=== PATIENT | male | born 1980 | race Caucasian/White ===

== ENCOUNTER 2017-10-11 14:43 | Inpatient (IN) | payer OTHER ==
[~2017-10-11] VITALS: Ht 162.6 cm; Wt 78.1 kg
[2017-10-11] MEDS ORDERED: MORPHINE SULFATE 2 MG/ML VIAL. IV ONE (16:00)
[2017-10-11] MEDS ORDERED: ONDANSETRON PF 4 MG/2 ML VIAL. IV ONE (16:00)
--- NOTE | 2017-10-11 16:01 | PHYS DOC ---
Past Medical History Past Medical History: No Pertinent History Past Surgical History: Appendectomy Alcohol Use: None Drug Use: None Adult General Chief Complaint Chief Complaint: RIB PAIN HPI HPI Patient is a 36 year old male presents the ED complaining of right rib injury 3 weeks ago. Patient states he was stripping floors and lifting objects when he felt a pull on the right side of his ribs. Describes the pain as sharp. Rates the pain as 6 out of 10. About a week later he started to go back to work and felt another pull. States over the last week he has noticed some swelling and tenderness to his right anterior rib cage. States he had a chest x-ray about a week ago that showed nothing. Patient is currently incarcerated at this time. Denies chest pain, shortness of breath, dizziness, weakness, headache, fever, vision changes, nausea/vomiting or abdominal pain. Review of Systems Review of Systems Constitutional: Denies fever or chills [] Eyes: Denies change in visual acuity, redness, or eye pain [] HENT: Denies nasal congestion or sore throat [] Respiratory: Denies cough or shortness of breath [] Cardiovascular: No additional information not addressed in HPI [] GI: Denies abdominal pain, nausea, vomiting, bloody stools or diarrhea [] : Denies dysuria or hematuria [] Musculoskeletal: Complains of rib pain. Denies back pain or joint pain [] Integument: Denies rash or skin lesions [] Neurologic: Denies headache, focal weakness or sensory changes [] All other systems were reviewed and found to be within normal limits, except as documented in this note. Current Medications Current Medications Current Medications Medications (Trade) Dose Ordered Sig/Migel Start Time Stop Time Status Last Admin Dose Admin Acetaminophen (Tylenol) 650 mg PRN Q4HRS PRN 10/11/17 17:15 10/12/17 17:14 Clindamycin Phosphate 50 ml @ 100 mls/hr 1X ONCE 10/11/17 17:15 10/11/17 17:44 DC Fentanyl Citrate (Fentanyl 2ml Vial) 50 mcg PRN Q1HR PRN 10/11/17 17:15 10/12/17 17:14 10/11/17 19:12 50 MCG Info (CONTRAST GIVEN -- Rx MONITORING) 1 each PRN DAILY PRN 10/11/17 16:15 10/13/17 16:14 Iohexol (Omnipaque 300 Mg/ml) 75 ml 1X ONCE 10/11/17 16:15 10/11/17 16:16 DC 10/11/17 16:27 75 ML Morphine Sulfate (Morphine Sulfate) 2 mg 1X ONCE 10/11/17 16:00 10/11/17 16:06 DC 10/11/17 16:34 2 MG Ondansetron HCl (Zofran) 4 mg PRN Q8HRS PRN 10/11/17 17:15 10/12/17 17:14 Vancomycin HCl (Vanco Per Pharmacy) 1 each PRN DAILY PRN 10/11/17 17:30 UNV Vancomycin HCl 2 gm/Sodium Chloride 500 ml @ 250 mls/hr 1X ONCE 10/11/17 17:45 10/11/17 19:44 DC 10/11/17 18:02 250 MLS/HR Allergies Allergies Allergies Coded Allergies Type Severity Reaction Last Updated Verified Penicillins Allergy Unknown SICK 10/11/17 Yes Physical Exam Physical Exam Constitutional: Well developed, well nourished, no acute distress, non-toxic appearance. [] HENT: Normocephalic, atraumatic Neck: Normal range of motion, no tenderness, supple, no stridor. [] Cardiovascular:Heart rate regular rhythm, no murmur [] Lungs & Thorax: Bilateral breath sounds clear to auscultation. Mild right anterior mid rib swelling/tenderness. mild warmth and erythema overlying the area. No laceration. [] Abdomen: Bowel sounds normal, soft, no tenderness, no masses, no pulsatile masses. [] Skin: Warm, dry, no erythema, no rash. [] Back: No tenderness, no CVA tenderness. [] Extremities: No tenderness, no cyanosis, no clubbing, ROM intact, no edema. [] Neurologic: Alert and oriented X 3, normal motor function, normal sensory function, no focal deficits noted. [] Psychologic: Affect normal, judgement normal, mood normal. [] Current Patient Data Vital Signs Vital Signs Date Time Temp Pulse Resp B/P (MAP) Pulse Ox O2 Delivery O2 Flow Rate FiO2 10/11/17 19:12 24 95 Room Air 10/11/17 18:30 72 132/75 (94) 10/11/17 15:40 97.7 97.7 Lab Values Laboratory Tests Test 10/11/17 16:00 White Blood Count 15.8 x10^3/uL (4.0-11.0) H Red Blood Count 4.36 x10^6/uL (4.30-5.70) Hemoglobin 13.7 g/dL (13.0-17.5) Hematocrit 40.7 % (39.0-53.0) Mean Corpuscular Volume 93 fL (79-100) Mean Corpuscular Hemoglobin 32 pg (25-35) Mean Corpuscular Hemoglobin Concent 34 g/dL (31-37) Red Cell Distribution Width 12.8 % (11.5-14.5) Platelet Count 290 x10^3/uL (140-400) Neutrophils (%) (Auto) 79 % (31-73) H Lymphocytes (%) (Auto) 13 % (24-48) L Monocytes (%) (Auto) 8 % (0-9) Eosinophils (%) (Auto) 0 % (0-3) Basophils (%) (Auto) 0 % (0-3) Neutrophils # (Auto) 12.4 x10^3uL (1.8-7.7) H Lymphocytes # (Auto) 2.0 x10^3/uL (1.0-4.8) Monocytes # (Auto) 1.3 x10^3/uL (0.0-1.1) H Eosinophils # (Auto) 0.0 x10^3/uL (0.0-0.7) Basophils # (Auto) 0.1 x10^3/uL (0.0-0.2) Sodium Level 135 mmol/L (136-145) L Potassium Level 4.0 mmol/L (3.5-5.1) Chloride Level 104 mmol/L (98-107) Carbon Dioxide Level 28 mmol/L (21-32) Anion Gap 3 (6-14) L Blood Urea Nitrogen 10 mg/dL (8-26) Creatinine 0.9 mg/dL (0.7-1.3) Estimated GFR (Cockcroft-Gault) 96.0 BUN/Creatinine Ratio 11 (6-20) Glucose Level 76 mg/dL (70-99) Calcium Level 9.2 mg/dL (8.5-10.1) Total Bilirubin 0.4 mg/dL (0.2-1.0) Aspartate Amino Transferase (AST) 38 U/L (15-37) H Alanine Aminotransferase (ALT) 58 U/L (16-63) Alkaline Phosphatase 106 U/L (46-116) Total Protein 8.4 g/dL (6.4-8.2) H Albumin 2.8 g/dL (3.4-5.0) L Albumin/Globulin Ratio 0.5 (1.0-1.7) L Laboratory Tests 10/11/17 16:00 Laboratory Tests 10/11/17 16:00 EKG EKG [] Radiology/Procedures Radiology/Procedures PROCEDURE: CT CHEST W/CONTRAST CT of the chest with contrast, 10/11/2017: HISTORY: Rib pain and swelling, shortness of breath Multidetector CT imaging was performed following an IV bolus injection of iodinated contrast material. The heart size is unremarkable. The thoracic aorta is normal. No mediastinal adenopathy is evident. There is a fluid collection involving the right upper abdominal and lower chest bolanos anteriorly, centered along the anterior aspect of the upper portion of the right lobe of the liver. This surrounds the anterior aspects of the right fifth through seventh ribs and their associated costal cartilages. This process measures approximately 6 cm in greatest AP dimension, 10 cm in width and 8 cm in craniocaudad extent. It demonstrates a CT number of 20-30 Hounsfield units compatible with complex fluid. No air bubbles are seen within this process. No underlying rib fracture or bone destruction is seen. This process is causing a moderate extrinsic impression upon the anterior aspect of the liver at this level. No underlying hepatic mass or laceration is evident. There is a small amount of right-sided pleural fluid. There is mild underlying streaky atelectasis in the right lower lobe. There is mild interlobular septal thickening anterolaterally in the right middle lobe. There is no evidence of pneumothorax on either side. There is mild linear atelectasis or scarring posteriorly in the left lung. There is only trace amount of fluid and/or atelectasis in the posterior costophrenic angle on the left. The liver appears to be at the upper limits of normal in size. The spleen is moderately enlarged, incompletely visualized on these chest images. Portacaval and celiac region lymph nodes appear to be mildly enlarged. IMPRESSION: 1. Complex fluid collection involving the upper anterior abdominal wall producing a mass effect upon the anterior aspect of the liver and protruding into the subcutaneous soft tissues as described above. Diagnostic considerations include a chest wall hematoma or infection. Clinical correlation suggested. 2. Small right pleural effusion with mild right basilar atelectasis. 3. Mild hepatomegaly and moderate splenomegaly, presumably related to the given history of sickle cell disease. 4. Mild portacaval and celiac region adenopathy.[] Course & Med Decision Making Course & Med Decision Making Pertinent Labs and Imaging studies reviewed. (See chart for details) Complex fluid collection seen on imaging. Discussed case with hospitalist, Dr. Napoles. Agrees to admission and further management of patient. Patient stable for admission. Clindamycin and Vancomycin ordered. Consult for general surgery placed. Dragon Disclaimer Dragon Disclaimer This electronic medical record was generated, in whole or in part, using a voice recognition dictation system. Departure Departure Impression: Primary Impression: Chest wall abscess Disposition: ADMITTED INPATIENT Admitting Physician: Jorge Gonzales Condition: STABLE Referrals: NO PCP (PCP) KAREN LEONARD Oct 11, 2017 16:01
[2017-10-11 16:10] LABS: BASO # 0.1 x10^3/uL (0.0-0.2); BASO % 0 % (0-3); EOS % 0 % (0-3); HEMATOCRIT 40.7 % (39.0-53.0); HEMOGLOBIN 13.7 g/dL (13.0-17.5); LYMPH % 13 % (24-48); MEAN CORPUSCULAR HEMOGLOBIN 32 pg (25-35); MEAN CORPUSCULAR HGB CONC 34 g/dL (31-37); MEAN CORPUSCULAR VOLUME 93 fL (79-100); MONO # 1.3 x10^3/uL (0.0-1.1); MONO % 8 % (0-9); NEUT # 12.4 x10^3uL (1.8-7.7); NEUT % 79 % (31-73); PLATELET COUNT 290 x10^3/uL (140-400); RED BLOOD COUNT 4.36 x10^6/uL (4.30-5.70); RED CELL DISTRIBUTION WIDTH 12.8 % (11.5-14.5); WHITE BLOOD COUNT 15.8 x10^3/uL (4.0-11.0)
[2017-10-11] MEDS ORDERED: CONTRAST GIVEN. MC PRN (16:15)
[2017-10-11] MEDS ORDERED: IOHEXOL 300 MG/ML 100ML VIAL. IV ONE (16:15)
[2017-10-11 16:19] LABS: CALCIUM 9.2 mg/dL (8.5-10.1); CREATININE 0.9 mg/dL (0.7-1.3)
[2017-10-11 16:24] LABS: ALBUMIN 2.8 g/dL (3.4-5.0); ALBUMIN/GLOBULIN RATIO 0.5 (1.0-1.7); TOTAL BILIRUBIN 0.4 mg/dL (0.2-1.0); TOTAL PROTEIN 8.4 g/dL (6.4-8.2)
--- NOTE | 2017-10-11 16:57 | RAD ---
CT of the chest with contrast, 10/11/2017: HISTORY: Rib pain and swelling, shortness of breath Multidetector CT imaging was performed following an IV bolus injection of iodinated contrast material. The heart size is unremarkable. The thoracic aorta is normal. No mediastinal adenopathy is evident. There is a fluid collection involving the right upper abdominal and lower chest bolanos anteriorly, centered along the anterior aspect of the upper portion of the right lobe of the liver. This surrounds the anterior aspects of the right fifth through seventh ribs and their associated costal cartilages. This process measures approximately 6 cm in greatest AP dimension, 10 cm in width and 8 cm in craniocaudad extent. It demonstrates a CT number of 20-30 Hounsfield units compatible with complex fluid. No air bubbles are seen within this process. No underlying rib fracture or bone destruction is seen. This process is causing a moderate extrinsic impression upon the anterior aspect of the liver at this level. No underlying hepatic mass or laceration is evident. There is a small amount of right-sided pleural fluid. There is mild underlying streaky atelectasis in the right lower lobe. There is mild interlobular septal thickening anterolaterally in the right middle lobe. There is no evidence of pneumothorax on either side. There is mild linear atelectasis or scarring posteriorly in the left lung. There is only trace amount of fluid and/or atelectasis in the posterior costophrenic angle on the left. The liver appears to be at the upper limits of normal in size. The spleen is moderately enlarged, incompletely visualized on these chest images. Portacaval and celiac region lymph nodes appear to be mildly enlarged. IMPRESSION: 1. Complex fluid collection involving the upper anterior abdominal wall producing a mass effect upon the anterior aspect of the liver and protruding into the subcutaneous soft tissues as described above. Diagnostic considerations include a chest wall hematoma or infection. Clinical correlation suggested. 2. Small right pleural effusion with mild right basilar atelectasis. 3. Mild hepatomegaly and moderate splenomegaly, presumably related to the given history of sickle cell disease. 4. Mild portacaval and celiac region adenopathy. PQRS Compliance Statement: One or more of the following individualized dose reduction techniques were utilized for this examination: 1. Automated exposure control 2. Adjustment of the mA and/or kV according to patient size 3. Use of iterative reconstruction technique stenosis. Electronically signed by: Ben Oconnor MD (10/11/2017 4:54 PM) [facility]
[2017-10-11] MEDS ORDERED: ONDANSETRON PF 4 MG/2 ML VIAL. IV PRN (17:15)
[2017-10-11] MEDS ORDERED: CLINDAMYCIN 900MG PREMIX 50 ML IV ONE (17:15)
[2017-10-11] MEDS ORDERED: VANCOMYCIN 2 GM in IV NORMAL SALINE 500ML BAG 500 ML IV ONE (17:45)
[2017-10-11] MEDS: fentaNYL PF VIAL 100 MCG/2 ML VIAL IV PRN ×2 (18:07→19:12)
--- NOTE | 2017-10-11 19:45 | PDOC1 ---
History and Physical Date of Admission Date of Admission DATE: 10/11/17 TIME: 19:45 Identification/Chief Complaint Chief Complaint CC presented the ED complaining of right rib injury 3 weeks ago. Patient states he was stripping floors [place] [employer] and lifting objects when he felt a pull on the right side of his ribs. Describes the pain as sharp. Rates the pain as 6 out of 10. About a week later he started to go back to work and felt another pull. over the last week he has noticed some swelling and tenderness to his right anterior rib cage. Past Medical History Past Medical History Past Medical History Past Medical History: No Pertinent History Past Surgical History: Appendectomy Alcohol Use: None Drug Use: None family hx htn Cardiovascular: No pertinent hx Pulmonary: No pertinent hx Infectious disease: No pertinent hx Past Surgical History Past Surgical History: No pertinent history Family History Family History: Hypertension Social History Smoke: No ALCOHOL: none Drugs: None Current Problem List Problem List Problems Medical Problems: (1) Chest wall abscess Status: Acute Current Medications Current Medications Current Medications Morphine Sulfate (Morphine Sulfate) 2 mg 1X ONCE IV Last administered on at 16:34; Start 10/11/17 at 16:00; Stop 10/11/17 at 16:06; Status DC Ondansetron HCl (Zofran) 4 mg 1X ONCE IV Last administered on 10/11/17at 16:33 ; Start 10/11/17 at 16:00; Stop 10/11/17 at 16:06; Status DC Iohexol (Omnipaque 300 Mg/ml) 75 ml 1X ONCE IV Last administered on 10/11/17at 16:27; Start 10/11/17 at 16:15; Stop 10/11/17 at 16:16; Status DC Info (CONTRAST GIVEN -- Rx MONITORING) 1 each PRN DAILY PRN MC SEE COMMENTS; Start 10/11/17 at 16:15; Stop 10/13/17 at 16:14 Clindamycin Phosphate 50 ml @ 100 mls/hr 1X ONCE IV ; Start 10/11/17 at 17:15 ; Stop 10/11/17 at 17:44; Status DC Ondansetron HCl (Zofran) 4 mg PRN Q8HRS PRN IV NAUSEA/VOMITING; Start 10/11/17 at 17:15; Stop 10/12/17 at 17:14 Fentanyl Citrate (Fentanyl 2ml Vial) 50 mcg PRN Q1HR PRN IV PAIN Last administered on 10/11/17at 19:12; Start 10/11/17 at 17:15; Stop 10/12/17 at 17:14 Acetaminophen (Tylenol) 650 mg PRN Q4HRS PRN PO FEVER; Start 10/11/17 at 17:15 ; Stop 10/12/17 at 17:14 Vancomycin HCl (Vanco Per Pharmacy) 1 each PRN DAILY PRN MC SEE COMMENTS; Start 10/11/17 at 17:30; Status UNV Vancomycin HCl 2 gm/Sodium Chloride 500 ml @ 250 mls/hr 1X ONCE IV Last administered on 10/11/17at 18:02; Start 10/11/17 at 17:45; Stop 10/11/17 at 19:44 ; Status DC Allergies Allergies: Coded Allergies: Penicillins (Verified Allergy, Unknown, SICK, 10/11/17) ROS Review of System Review of Systems Review of Systems Constitutional: Denies fever or chills [] Eyes: Denies change in visual acuity, redness, or eye pain [] HENT: Denies nasal congestion or sore throat [] Respiratory: Denies cough or shortness of breath [] Cardiovascular: No additional information not addressed in HPI [] GI: Denies abdominal pain, nausea, vomiting, bloody stools or diarrhea [] : Denies dysuria or hematuria [] Musculoskeletal: Complains of rib pain AND SOFT TISSUE EDEMA RIGHT LOWER CHEST WALL. Denies back pain or joint pain [] Integument: EDEMA RIGHT CHEST WALL [] Neurologic: Denies headache, focal weakness or sensory changes [] 14 PT systems were reviewed and found to be within normal limits, except as documented in this note. Hematological and Lymphatic: No: Bleeding Problems, Blood Clots, Blood Transfusions, Brusing, Night Sweats, Pallor, Swollen Lymph Nodes, Other Physical Exam Physical Exam Physical Exam Physical Exam Constitutional: Well developed, well nourished, no acute distress, non-toxic appearance. [] HENT: Normocephalic, atraumatic Neck: Normal range of motion, no tenderness, supple, no stridor. [] Cardiovascular:Heart rate regular rhythm, no murmur [] Lungs & Thorax: Bilateral breath sounds clear to auscultation. MOD- SEVERE right anterior mid rib swelling/tenderness. warmth and erythema overlying the area. No laceration. [] Abdomen: Bowel sounds normal, soft, no tenderness, no masses, no pulsatile masses. [] Skin: Warm, dry, no erythema, no rash. [] Back: No tenderness, no CVA tenderness. [] Extremities: No tenderness, no cyanosis, no clubbing, ROM intact, no edema. [] Neurologic: Alert and oriented X 3, normal motor function, normal sensory function, no focal deficits noted. [] Psychologic: Affect normal, judgement normal, mood normal. [] General: Alert, Oriented X3, Cooperative, moderate distress HEENT: PERRLA, EOMI Lungs: Normal air movement Heart: S1S2, RRR, no thrills Rectal Exam: not examined Extremities: No cyanosis Neuro: Cranial nerves 3-12 NL Vitals Vitals Vital Signs Date Time Temp Pulse Resp B/P (MAP) Pulse Ox O2 Delivery O2 Flow Rate FiO2 10/11/17 19:12 24 95 Room Air 10/11/17 18:30 72 132/75 (94) 10/11/17 15:40 97.7 97.7 Labs Labs Laboratory Tests Test 10/11/17 16:00 White Blood Count 15.8 x10^3/uL (4.0-11.0) Red Blood Count 4.36 x10^6/uL (4.30-5.70) Hemoglobin 13.7 g/dL (13.0-17.5) Hematocrit 40.7 % (39.0-53.0) Mean Corpuscular Volume 93 fL (79-100) Mean Corpuscular Hemoglobin 32 pg (25-35) Mean Corpuscular Hemoglobin Concent 34 g/dL (31-37) Red Cell Distribution Width 12.8 % (11.5-14.5) Platelet Count 290 x10^3/uL (140-400) Neutrophils (%) (Auto) 79 % (31-73) Lymphocytes (%) (Auto) 13 % (24-48) Monocytes (%) (Auto) 8 % (0-9) Eosinophils (%) (Auto) 0 % (0-3) Basophils (%) (Auto) 0 % (0-3) Neutrophils # (Auto) 12.4 x10^3uL (1.8-7.7) Lymphocytes # (Auto) 2.0 x10^3/uL (1.0-4.8) Monocytes # (Auto) 1.3 x10^3/uL (0.0-1.1) Eosinophils # (Auto) 0.0 x10^3/uL (0.0-0.7) Basophils # (Auto) 0.1 x10^3/uL (0.0-0.2) Sodium Level 135 mmol/L (136-145) Potassium Level 4.0 mmol/L (3.5-5.1) Chloride Level 104 mmol/L (98-107) Carbon Dioxide Level 28 mmol/L (21-32) Anion Gap 3 (6-14) Blood Urea Nitrogen 10 mg/dL (8-26) Creatinine 0.9 mg/dL (0.7-1.3) Estimated GFR (Cockcroft-Gault) 96.0 BUN/Creatinine Ratio 11 (6-20) Glucose Level 76 mg/dL (70-99) Calcium Level 9.2 mg/dL (8.5-10.1) Total Bilirubin 0.4 mg/dL (0.2-1.0) Aspartate Amino Transf (AST/SGOT) 38 U/L (15-37) Alanine Aminotransferase (ALT/SGPT) 58 U/L (16-63) Alkaline Phosphatase 106 U/L (46-116) Total Protein 8.4 g/dL (6.4-8.2) Albumin 2.8 g/dL (3.4-5.0) Albumin/Globulin Ratio 0.5 (1.0-1.7) Laboratory Tests Test 10/11/17 16:00 White Blood Count 15.8 x10^3/uL (4.0-11.0) Red Blood Count 4.36 x10^6/uL (4.30-5.70) Hemoglobin 13.7 g/dL (13.0-17.5) Hematocrit 40.7 % (39.0-53.0) Mean Corpuscular Volume 93 fL (79-100) Mean Corpuscular Hemoglobin 32 pg (25-35) Mean Corpuscular Hemoglobin Concent 34 g/dL (31-37) Red Cell Distribution Width 12.8 % (11.5-14.5) Platelet Count 290 x10^3/uL (140-400) Neutrophils (%) (Auto) 79 % (31-73) Lymphocytes (%) (Auto) 13 % (24-48) Monocytes (%) (Auto) 8 % (0-9) Eosinophils (%) (Auto) 0 % (0-3) Basophils (%) (Auto) 0 % (0-3) Neutrophils # (Auto) 12.4 x10^3uL (1.8-7.7) Lymphocytes # (Auto) 2.0 x10^3/uL (1.0-4.8) Monocytes # (Auto) 1.3 x10^3/uL (0.0-1.1) Eosinophils # (Auto) 0.0 x10^3/uL (0.0-0.7) Basophils # (Auto) 0.1 x10^3/uL (0.0-0.2) Sodium Level 135 mmol/L (136-145) Potassium Level 4.0 mmol/L (3.5-5.1) Chloride Level 104 mmol/L (98-107) Carbon Dioxide Level 28 mmol/L (21-32) Anion Gap 3 (6-14) Blood Urea Nitrogen 10 mg/dL (8-26) Creatinine 0.9 mg/dL (0.7-1.3) Estimated GFR (Cockcroft-Gault) 96.0 BUN/Creatinine Ratio 11 (6-20) Glucose Level 76 mg/dL (70-99) Calcium Level 9.2 mg/dL (8.5-10.1) Total Bilirubin 0.4 mg/dL (0.2-1.0) Aspartate Amino Transf (AST/SGOT) 38 U/L (15-37) Alanine Aminotransferase (ALT/SGPT) 58 U/L (16-63) Alkaline Phosphatase 106 U/L (46-116) Total Protein 8.4 g/dL (6.4-8.2) Albumin 2.8 g/dL (3.4-5.0) Albumin/Globulin Ratio 0.5 (1.0-1.7) VTE Prophylaxis Ordered VTE Prophylaxis Devices: Yes VTE Pharmacological Prophylaxi: Yes Assessment/Plan Assessment/Plan IMPRESSION: 1. Complex fluid collection involving the upper anterior abdominal wall producing a mass effect upon the anterior aspect of the liver and protruding into the subcutaneous soft tissues Diagnostic considerations include a chest wall hematoma or infection. 2. Small right pleural effusion with mild right basilar atelectasis. 3. Mild hepatomegaly and moderate splenomegaly, 4. Mild portacaval and celiac region adenopathy. 5. Leukocytosis PLAN EMPERIC IV VANC, CLINDAMYCIN id consult general surgery consult INR IV PAIN CONTROL SQ LOVENOX DVT PROPHYLAXIS BLOOD CULT CARLA PAREDES MD Oct 11, 2017 19:45
[2017-10-11] MEDS: VANCOMYCIN PER PHARMACY MC PRN (20:04)
[2017-10-11] MEDS: ENOXAPARIN 40 MG/0.4 ML SYRINGE. SQ SCH (20:30)
[2017-10-11 20:48] VITALS: BP 150/81
--- NOTE | 2017-10-11 21:19 | PDOC2 ---
CONSULT Date of Consult Date of Consult DATE: 10/11/17 TIME: 21:14 Reason for Consult Reason for Consult: Right chest wall hematoma. Referring Physician Referring Physician: Dony Identification/Chief Complaint Chief Complaint Right chest wall pain Source Source: Chart review, Patient History of Present Illness Reason for Visit: 36 yo M noted RUQ pain 3 weeks ago when moving tables. No obvious trauma. Developed pain in RUQ. Gradually worsened and became intense today. No previous episode. Past Medical History Cardiovascular: No pertinent hx Pulmonary: No pertinent hx Infectious disease: No pertinent hx Past Surgical History Past Surgical History: No pertinent history Family History Family History: Hypertension Social History No ALCOHOL: none Drugs: None Current Problem List Problem List Problems Medical Problems: (1) Chest wall abscess Status: Acute Current Medications Current Medications Current Medications Morphine Sulfate (Morphine Sulfate) 2 mg 1X ONCE IV Last administered on at 16:34; Start 10/11/17 at 16:00; Stop 10/11/17 at 16:06; Status DC Ondansetron HCl (Zofran) 4 mg 1X ONCE IV Last administered on 10/11/17at 16:33 ; Start 10/11/17 at 16:00; Stop 10/11/17 at 16:06; Status DC Iohexol (Omnipaque 300 Mg/ml) 75 ml 1X ONCE IV Last administered on 10/11/17at 16:27; Start 10/11/17 at 16:15; Stop 10/11/17 at 16:16; Status DC Info (CONTRAST GIVEN -- Rx MONITORING) 1 each PRN DAILY PRN MC SEE COMMENTS; Start 10/11/17 at 16:15; Stop 10/13/17 at 16:14 Clindamycin Phosphate 50 ml @ 100 mls/hr 1X ONCE IV Last administered on 10/11at 20:13; Start 10/11/17 at 17:15; Stop 10/11/17 at 17:44; Status DC Ondansetron HCl (Zofran) 4 mg PRN Q8HRS PRN IV NAUSEA/VOMITING; Start 10/11/17 at 17:15; Stop 10/12/17 at 17:14 Fentanyl Citrate (Fentanyl 2ml Vial) 50 mcg PRN Q1HR PRN IV PAIN Last administered on 10/11/17at 19:12; Start 10/11/17 at 17:15; Stop 10/12/17 at 17:14 Acetaminophen (Tylenol) 650 mg PRN Q4HRS PRN PO FEVER; Start 10/11/17 at 17:15 ; Stop 10/12/17 at 17:14 Vancomycin HCl (Vanco Per Pharmacy) 1 each PRN DAILY PRN MC SEE COMMENTS Last administered on 10/11/17at 20:04; Start 10/11/17 at 17:30 Vancomycin HCl 2 gm/Sodium Chloride 500 ml @ 250 mls/hr 1X ONCE IV Last administered on 10/11/17at 18:02; Start 10/11/17 at 17:45; Stop 10/11/17 at 19:44 ; Status DC Vancomycin HCl 1 gm/Sodium Chloride 250 ml @ 250 mls/hr Q8H IV ; Start at 02:00 Vancomycin HCl (Vancomycin Trough Level) 1 each 1X ONCE MC ; Start 10/12/17 at 17:30; Stop 10/12/17 at 17:31 Enoxaparin Sodium (Lovenox 40mg Syringe) 40 mg Q24H SQ ; Start 10/11/17 at 20:30 Allergies Allergies: Coded Allergies: Penicillins (Verified Allergy, Unknown, SICK, 10/11/17) ROS Gastrointestinal: Yes Abdominal Pain Physical Exam General: Alert, Oriented X3, Cooperative, mild distress HEENT: Atraumatic Lungs: Normal air movement Abdomen: Other (visible and palpable fullness in RUQ abd wall, chest wall, TTP , no obvious erythema or ecchymosis) Extremities: No clubbing, No cyanosis Skin: No rashes, No breakdown Neuro: Normal speech, Sensation intact Psych/Mental Status: Mental status NL, Mood NL Vitals VITALS Vital Signs Date Time Temp Pulse Resp B/P (MAP) Pulse Ox O2 Delivery O2 Flow Rate FiO2 10/11/17 19:45 18 93 Room Air 10/11/17 18:30 72 132/75 (94) 10/11/17 15:40 97.7 97.7 Labs Labs Laboratory Tests Test 10/11/17 15:52 10/11/17 16:00 Prothrombin Time 16.0 SEC (11.7-14.0) Prothromb Time International Ratio 1.3 (0.8-1.1) White Blood Count 15.8 x10^3/uL (4.0-11.0) Red Blood Count 4.36 x10^6/uL (4.30-5.70) Hemoglobin 13.7 g/dL (13.0-17.5) Hematocrit 40.7 % (39.0-53.0) Mean Corpuscular Volume 93 fL (79-100) Mean Corpuscular Hemoglobin 32 pg (25-35) Mean Corpuscular Hemoglobin Concent 34 g/dL (31-37) Red Cell Distribution Width 12.8 % (11.5-14.5) Platelet Count 290 x10^3/uL (140-400) Neutrophils (%) (Auto) 79 % (31-73) Lymphocytes (%) (Auto) 13 % (24-48) Monocytes (%) (Auto) 8 % (0-9) Eosinophils (%) (Auto) 0 % (0-3) Basophils (%) (Auto) 0 % (0-3) Neutrophils # (Auto) 12.4 x10^3uL (1.8-7.7) Lymphocytes # (Auto) 2.0 x10^3/uL (1.0-4.8) Monocytes # (Auto) 1.3 x10^3/uL (0.0-1.1) Eosinophils # (Auto) 0.0 x10^3/uL (0.0-0.7) Basophils # (Auto) 0.1 x10^3/uL (0.0-0.2) Sodium Level 135 mmol/L (136-145) Potassium Level 4.0 mmol/L (3.5-5.1) Chloride Level 104 mmol/L (98-107) Carbon Dioxide Level 28 mmol/L (21-32) Anion Gap 3 (6-14) Blood Urea Nitrogen 10 mg/dL (8-26) Creatinine 0.9 mg/dL (0.7-1.3) Estimated GFR (Cockcroft-Gault) 96.0 BUN/Creatinine Ratio 11 (6-20) Glucose Level 76 mg/dL (70-99) Calcium Level 9.2 mg/dL (8.5-10.1) Total Bilirubin 0.4 mg/dL (0.2-1.0) Aspartate Amino Transf (AST/SGOT) 38 U/L (15-37) Alanine Aminotransferase (ALT/SGPT) 58 U/L (16-63) Alkaline Phosphatase 106 U/L (46-116) Total Protein 8.4 g/dL (6.4-8.2) Albumin 2.8 g/dL (3.4-5.0) Albumin/Globulin Ratio 0.5 (1.0-1.7) Laboratory Tests Test 10/11/17 15:52 10/11/17 16:00 Prothrombin Time 16.0 SEC (11.7-14.0) Prothromb Time International Ratio 1.3 (0.8-1.1) White Blood Count 15.8 x10^3/uL (4.0-11.0) Red Blood Count 4.36 x10^6/uL (4.30-5.70) Hemoglobin 13.7 g/dL (13.0-17.5) Hematocrit 40.7 % (39.0-53.0) Mean Corpuscular Volume 93 fL (79-100) Mean Corpuscular Hemoglobin 32 pg (25-35) Mean Corpuscular Hemoglobin Concent 34 g/dL (31-37) Red Cell Distribution Width 12.8 % (11.5-14.5) Platelet Count 290 x10^3/uL (140-400) Neutrophils (%) (Auto) 79 % (31-73) Lymphocytes (%) (Auto) 13 % (24-48) Monocytes (%) (Auto) 8 % (0-9) Eosinophils (%) (Auto) 0 % (0-3) Basophils (%) (Auto) 0 % (0-3) Neutrophils # (Auto) 12.4 x10^3uL (1.8-7.7) Lymphocytes # (Auto) 2.0 x10^3/uL (1.0-4.8) Monocytes # (Auto) 1.3 x10^3/uL (0.0-1.1) Eosinophils # (Auto) 0.0 x10^3/uL (0.0-0.7) Basophils # (Auto) 0.1 x10^3/uL (0.0-0.2) Sodium Level 135 mmol/L (136-145) Potassium Level 4.0 mmol/L (3.5-5.1) Chloride Level 104 mmol/L (98-107) Carbon Dioxide Level 28 mmol/L (21-32) Anion Gap 3 (6-14) Blood Urea Nitrogen 10 mg/dL (8-26) Creatinine 0.9 mg/dL (0.7-1.3) Estimated GFR (Cockcroft-Gault) 96.0 BUN/Creatinine Ratio 11 (6-20) Glucose Level 76 mg/dL (70-99) Calcium Level 9.2 mg/dL (8.5-10.1) Total Bilirubin 0.4 mg/dL (0.2-1.0) Aspartate Amino Transf (AST/SGOT) 38 U/L (15-37) Alanine Aminotransferase (ALT/SGPT) 58 U/L (16-63) Alkaline Phosphatase 106 U/L (46-116) Total Protein 8.4 g/dL (6.4-8.2) Albumin 2.8 g/dL (3.4-5.0) Albumin/Globulin Ratio 0.5 (1.0-1.7) Images Images CT c/w RUQ chest wall hematoma Assessment/Plan Assessment/Plan Chest wall hematoma agree with pain control given significant sx, recommend drainage. Will ask IR to consult Thanks for consult! SCOTT DAMIAN MD Oct 11, 2017 21:19
[2017-10-11] MEDS: KETOROLAC 30 MG/ML VIAL. IV PRN (22:03)
[2017-10-11 23:00] VITALS: BP 122/71
[2017-10-12] VITALS (19 sets, daily range): BP systolic 107–139; BP diastolic 59–89
[2017-10-12] MEDS: traMADol 50 MG TABLET PO PRN ×2 (00:26→21:26)
[2017-10-12] MEDS: VANCOMYCIN 1 GM in IV NORMAL SALINE 250ML 250 ML IV SCH ×2 (01:44→08:51)
[2017-10-12] MEDS ORDERED: IV NORMAL SALINE 1000ML BAG 1,000 ML IV ONE (04:15)
[2017-10-12] MEDS: ACETAMINOPHEN 325 MG TABLET. PO PRN ×2 (04:22→15:03)
[2017-10-12 04:44] LABS: BASO # 0.1 x10^3/uL (0.0-0.2); BASO % 1 % (0-3); EOS % 0 % (0-3); HEMATOCRIT 36.7 % (39.0-53.0); HEMOGLOBIN 12.8 g/dL (13.0-17.5); LYMPH # 1.7 x10^3/uL (1.0-4.8); LYMPH % 10 % (24-48); MEAN CORPUSCULAR HEMOGLOBIN 32 pg (25-35); MEAN CORPUSCULAR HGB CONC 35 g/dL (31-37); MEAN CORPUSCULAR VOLUME 92 fL (79-100); MONO # 1.4 x10^3/uL (0.0-1.1); MONO % 9 % (0-9); NEUT % 80 % (31-73); PLATELET COUNT 285 x10^3/uL (140-400); RED BLOOD COUNT 3.98 x10^6/uL (4.30-5.70); RED CELL DISTRIBUTION WIDTH 12.8 % (11.5-14.5); WHITE BLOOD COUNT 16.2 x10^3/uL (4.0-11.0)
[2017-10-12 05:10] LABS: ALBUMIN 2.3 g/dL (3.4-5.0); ALBUMIN/GLOBULIN RATIO 0.4 (1.0-1.7); CALCIUM 8.4 mg/dL (8.5-10.1); POTASSIUM 4.1 mmol/L (3.5-5.1); TOTAL BILIRUBIN 0.4 mg/dL (0.2-1.0); TOTAL PROTEIN 7.5 g/dL (6.4-8.2)
[2017-10-12] MEDS: IV NORMAL SALINE 1000ML BAG 1,000 ML IV SCH ×3 (06:05→21:28)
[2017-10-12] MEDS: KETOROLAC 30 MG/ML VIAL. IV PRN ×3 (06:05→18:03)
--- NOTE | 2017-10-12 11:36 | PDOC ---
Provider Note Provider Note ID consult done [id number] AMILCAR MIR MD Oct 12, 2017 11:36
[2017-10-12] MEDS ORDERED: LIDOCAINE WITH 8.4% SOD BICARB 3 ML DISP.SYRIN. ONE (12:17)
--- NOTE | 2017-10-12 12:22 | PDOC ---
SURGICAL PROGRESS NOTE Subjective Pt feels better then last night, has not had drainage yet Vital Signs Vital Signs Date Time Temp Pulse Resp B/P (MAP) Pulse Ox O2 Delivery O2 Flow Rate FiO2 10/12/17 10:58 97.9 62 18 129/76 (93) 97 Room Air 97.9 I&O Intake and Output 10/12/17 07:00 Intake Total 1450 ml Balance 1450 ml Intake Oral 1450 ml # Voids 2 General: Alert, Oriented X3, Cooperative, No acute distress Abdomen: Soft, Other (TTP over mass) Labs Laboratory Tests Test 10/11/17 15:52 10/11/17 16:00 10/12/17 04:33 Prothrombin Time 16.0 SEC (11.7-14.0) Prothromb Time International Ratio 1.3 (0.8-1.1) White Blood Count 15.8 x10^3/uL (4.0-11.0) 16.2 x10^3/uL (4.0-11.0) Red Blood Count 4.36 x10^6/uL (4.30-5.70) 3.98 x10^6/uL (4.30-5.70) Hemoglobin 13.7 g/dL (13.0-17.5) 12.8 g/dL (13.0-17.5) Hematocrit 40.7 % (39.0-53.0) 36.7 % (39.0-53.0) Mean Corpuscular Volume 93 fL (79-100) 92 fL (79-100) Mean Corpuscular Hemoglobin 32 pg (25-35) 32 pg (25-35) Mean Corpuscular Hemoglobin Concent 34 g/dL (31-37) 35 g/dL (31-37) Red Cell Distribution Width 12.8 % (11.5-14.5) 12.8 % (11.5-14.5) Platelet Count 290 x10^3/uL (140-400) 285 x10^3/uL (140-400) Neutrophils (%) (Auto) 79 % (31-73) 80 % (31-73) Lymphocytes (%) (Auto) 13 % (24-48) 10 % (24-48) Monocytes (%) (Auto) 8 % (0-9) 9 % (0-9) Eosinophils (%) (Auto) 0 % (0-3) 0 % (0-3) Basophils (%) (Auto) 0 % (0-3) 1 % (0-3) Neutrophils # (Auto) 12.4 x10^3uL (1.8-7.7) 13.0 x10^3uL (1.8-7.7) Lymphocytes # (Auto) 2.0 x10^3/uL (1.0-4.8) 1.7 x10^3/uL (1.0-4.8) Monocytes # (Auto) 1.3 x10^3/uL (0.0-1.1) 1.4 x10^3/uL (0.0-1.1) Eosinophils # (Auto) 0.0 x10^3/uL (0.0-0.7) 0.0 x10^3/uL (0.0-0.7) Basophils # (Auto) 0.1 x10^3/uL (0.0-0.2) 0.1 x10^3/uL (0.0-0.2) Sodium Level 135 mmol/L (136-145) 133 mmol/L (136-145) Potassium Level 4.0 mmol/L (3.5-5.1) 4.1 mmol/L (3.5-5.1) Chloride Level 104 mmol/L (98-107) 103 mmol/L (98-107) Carbon Dioxide Level 28 mmol/L (21-32) 26 mmol/L (21-32) Anion Gap 3 (6-14) 4 (6-14) Blood Urea Nitrogen 10 mg/dL (8-26) 12 mg/dL (8-26) Creatinine 0.9 mg/dL (0.7-1.3) 1.0 mg/dL (0.7-1.3) Estimated GFR (Cockcroft-Gault) 96.0 85.0 BUN/Creatinine Ratio 11 (6-20) 12 (6-20) Glucose Level 76 mg/dL (70-99) 104 mg/dL (70-99) Calcium Level 9.2 mg/dL (8.5-10.1) 8.4 mg/dL (8.5-10.1) Total Bilirubin 0.4 mg/dL (0.2-1.0) 0.4 mg/dL (0.2-1.0) Aspartate Amino Transf (AST/SGOT) 38 U/L (15-37) 30 U/L (15-37) Alanine Aminotransferase (ALT/SGPT) 58 U/L (16-63) 48 U/L (16-63) Alkaline Phosphatase 106 U/L (46-116) 96 U/L (46-116) Total Protein 8.4 g/dL (6.4-8.2) 7.5 g/dL (6.4-8.2) Albumin 2.8 g/dL (3.4-5.0) 2.3 g/dL (3.4-5.0) Albumin/Globulin Ratio 0.5 (1.0-1.7) 0.4 (1.0-1.7) Lactic Acid Level 1.1 mmol/L (0.4-2.0) Laboratory Tests Test 10/11/17 15:52 10/11/17 16:00 10/12/17 04:33 Prothrombin Time 16.0 SEC (11.7-14.0) Prothromb Time International Ratio 1.3 (0.8-1.1) White Blood Count 15.8 x10^3/uL (4.0-11.0) 16.2 x10^3/uL (4.0-11.0) Red Blood Count 4.36 x10^6/uL (4.30-5.70) 3.98 x10^6/uL (4.30-5.70) Hemoglobin 13.7 g/dL (13.0-17.5) 12.8 g/dL (13.0-17.5) Hematocrit 40.7 % (39.0-53.0) 36.7 % (39.0-53.0) Mean Corpuscular Volume 93 fL (79-100) 92 fL (79-100) Mean Corpuscular Hemoglobin 32 pg (25-35) 32 pg (25-35) Mean Corpuscular Hemoglobin Concent 34 g/dL (31-37) 35 g/dL (31-37) Red Cell Distribution Width 12.8 % (11.5-14.5) 12.8 % (11.5-14.5) Platelet Count 290 x10^3/uL (140-400) 285 x10^3/uL (140-400) Neutrophils (%) (Auto) 79 % (31-73) 80 % (31-73) Lymphocytes (%) (Auto) 13 % (24-48) 10 % (24-48) Monocytes (%) (Auto) 8 % (0-9) 9 % (0-9) Eosinophils (%) (Auto) 0 % (0-3) 0 % (0-3) Basophils (%) (Auto) 0 % (0-3) 1 % (0-3) Neutrophils # (Auto) 12.4 x10^3uL (1.8-7.7) 13.0 x10^3uL (1.8-7.7) Lymphocytes # (Auto) 2.0 x10^3/uL (1.0-4.8) 1.7 x10^3/uL (1.0-4.8) Monocytes # (Auto) 1.3 x10^3/uL (0.0-1.1) 1.4 x10^3/uL (0.0-1.1) Eosinophils # (Auto) 0.0 x10^3/uL (0.0-0.7) 0.0 x10^3/uL (0.0-0.7) Basophils # (Auto) 0.1 x10^3/uL (0.0-0.2) 0.1 x10^3/uL (0.0-0.2) Sodium Level 135 mmol/L (136-145) 133 mmol/L (136-145) Potassium Level 4.0 mmol/L (3.5-5.1) 4.1 mmol/L (3.5-5.1) Chloride Level 104 mmol/L (98-107) 103 mmol/L (98-107) Carbon Dioxide Level 28 mmol/L (21-32) 26 mmol/L (21-32) Anion Gap 3 (6-14) 4 (6-14) Blood Urea Nitrogen 10 mg/dL (8-26) 12 mg/dL (8-26) Creatinine 0.9 mg/dL (0.7-1.3) 1.0 mg/dL (0.7-1.3) Estimated GFR (Cockcroft-Gault) 96.0 85.0 BUN/Creatinine Ratio 11 (6-20) 12 (6-20) Glucose Level 76 mg/dL (70-99) 104 mg/dL (70-99) Calcium Level 9.2 mg/dL (8.5-10.1) 8.4 mg/dL (8.5-10.1) Total Bilirubin 0.4 mg/dL (0.2-1.0) 0.4 mg/dL (0.2-1.0) Aspartate Amino Transf (AST/SGOT) 38 U/L (15-37) 30 U/L (15-37) Alanine Aminotransferase (ALT/SGPT) 58 U/L (16-63) 48 U/L (16-63) Alkaline Phosphatase 106 U/L (46-116) 96 U/L (46-116) Total Protein 8.4 g/dL (6.4-8.2) 7.5 g/dL (6.4-8.2) Albumin 2.8 g/dL (3.4-5.0) 2.3 g/dL (3.4-5.0) Albumin/Globulin Ratio 0.5 (1.0-1.7) 0.4 (1.0-1.7) Lactic Acid Level 1.1 mmol/L (0.4-2.0) Problem List Problems Medical Problems: (1) Chest wall abscess Status: Acute Assessment/Plan RUQ mass, favor hematoma agree with drainage today and pain control SCOTT DAMIAN MD Oct 12, 2017 12:22
--- NOTE | 2017-10-12 12:35 | PDOC ---
PROGRESS NOTES Chief Complaint Chief Complaint Chest wall hematoma or infection Small right pleural effusion with mild right basilar atelectasis. Mild hepatomegaly and moderate splenomegaly, Mild portacaval and celiac region adenopathy. Leukocytosis History of Present Illness History of Present Illness Pt seen and examined [facility] nurse Pt states [facility], minimal security - he is not accompanied by correctional officers Pt reports pain on R anterior chest wall Vitals Vitals Vital Signs Date Time Temp Pulse Resp B/P (MAP) Pulse Ox O2 Delivery O2 Flow Rate FiO2 10/12/17 10:58 97.9 62 18 129/76 (93) 97 Room Air 97.9 Physical Exam Physical Exam Hard, warm, erythematous abscess or hematoma over R ant chest wall, just below nipple line General: Alert, Oriented X3, Cooperative, No acute distress Heart: Regular rate, Normal S1, Normal S2, No murmurs Lungs: Clear Abdomen: Soft, No tenderness Extremities: No clubbing, No cyanosis, No edema Skin: No rashes, No breakdown Labs LABS Laboratory Tests Test 10/11/17 15:52 10/11/17 16:00 10/12/17 04:33 Prothrombin Time 16.0 SEC (11.7-14.0) Prothromb Time International Ratio 1.3 (0.8-1.1) White Blood Count 15.8 x10^3/uL (4.0-11.0) 16.2 x10^3/uL (4.0-11.0) Red Blood Count 4.36 x10^6/uL (4.30-5.70) 3.98 x10^6/uL (4.30-5.70) Hemoglobin 13.7 g/dL (13.0-17.5) 12.8 g/dL (13.0-17.5) Hematocrit 40.7 % (39.0-53.0) 36.7 % (39.0-53.0) Mean Corpuscular Volume 93 fL (79-100) 92 fL (79-100) Mean Corpuscular Hemoglobin 32 pg (25-35) 32 pg (25-35) Mean Corpuscular Hemoglobin Concent 34 g/dL (31-37) 35 g/dL (31-37) Red Cell Distribution Width 12.8 % (11.5-14.5) 12.8 % (11.5-14.5) Platelet Count 290 x10^3/uL (140-400) 285 x10^3/uL (140-400) Neutrophils (%) (Auto) 79 % (31-73) 80 % (31-73) Lymphocytes (%) (Auto) 13 % (24-48) 10 % (24-48) Monocytes (%) (Auto) 8 % (0-9) 9 % (0-9) Eosinophils (%) (Auto) 0 % (0-3) 0 % (0-3) Basophils (%) (Auto) 0 % (0-3) 1 % (0-3) Neutrophils # (Auto) 12.4 x10^3uL (1.8-7.7) 13.0 x10^3uL (1.8-7.7) Lymphocytes # (Auto) 2.0 x10^3/uL (1.0-4.8) 1.7 x10^3/uL (1.0-4.8) Monocytes # (Auto) 1.3 x10^3/uL (0.0-1.1) 1.4 x10^3/uL (0.0-1.1) Eosinophils # (Auto) 0.0 x10^3/uL (0.0-0.7) 0.0 x10^3/uL (0.0-0.7) Basophils # (Auto) 0.1 x10^3/uL (0.0-0.2) 0.1 x10^3/uL (0.0-0.2) Sodium Level 135 mmol/L (136-145) 133 mmol/L (136-145) Potassium Level 4.0 mmol/L (3.5-5.1) 4.1 mmol/L (3.5-5.1) Chloride Level 104 mmol/L (98-107) 103 mmol/L (98-107) Carbon Dioxide Level 28 mmol/L (21-32) 26 mmol/L (21-32) Anion Gap 3 (6-14) 4 (6-14) Blood Urea Nitrogen 10 mg/dL (8-26) 12 mg/dL (8-26) Creatinine 0.9 mg/dL (0.7-1.3) 1.0 mg/dL (0.7-1.3) Estimated GFR (Cockcroft-Gault) 96.0 85.0 BUN/Creatinine Ratio 11 (6-20) 12 (6-20) Glucose Level 76 mg/dL (70-99) 104 mg/dL (70-99) Calcium Level 9.2 mg/dL (8.5-10.1) 8.4 mg/dL (8.5-10.1) Total Bilirubin 0.4 mg/dL (0.2-1.0) 0.4 mg/dL (0.2-1.0) Aspartate Amino Transf (AST/SGOT) 38 U/L (15-37) 30 U/L (15-37) Alanine Aminotransferase (ALT/SGPT) 58 U/L (16-63) 48 U/L (16-63) Alkaline Phosphatase 106 U/L (46-116) 96 U/L (46-116) Total Protein 8.4 g/dL (6.4-8.2) 7.5 g/dL (6.4-8.2) Albumin 2.8 g/dL (3.4-5.0) 2.3 g/dL (3.4-5.0) Albumin/Globulin Ratio 0.5 (1.0-1.7) 0.4 (1.0-1.7) Lactic Acid Level 1.1 mmol/L (0.4-2.0) Review of Systems Review of Systems Denies fatigue CO pain Assessment and Plan Assessmemt and Plan Problems Medical Problems: (1) Chest wall abscess Status: Acute Chest wall hematoma or infection Small right pleural effusion with mild right basilar atelectasis. Mild hepatomegaly and moderate splenomegaly, Mild portacaval and celiac region adenopathy. Leukocytosis Plan: IR to drain hematoma/abscess today Culture Continue antibiotics Monitor white count Appreciate surgical input Comment Review of Relevant I have reviewed the following items janna (where applicable) has been applied. Labs Laboratory Tests Test 10/11/17 15:52 10/11/17 16:00 10/12/17 04:33 Prothrombin Time 16.0 SEC (11.7-14.0) Prothromb Time International Ratio 1.3 (0.8-1.1) White Blood Count 15.8 x10^3/uL (4.0-11.0) 16.2 x10^3/uL (4.0-11.0) Red Blood Count 4.36 x10^6/uL (4.30-5.70) 3.98 x10^6/uL (4.30-5.70) Hemoglobin 13.7 g/dL (13.0-17.5) 12.8 g/dL (13.0-17.5) Hematocrit 40.7 % (39.0-53.0) 36.7 % (39.0-53.0) Mean Corpuscular Volume 93 fL (79-100) 92 fL (79-100) Mean Corpuscular Hemoglobin 32 pg (25-35) 32 pg (25-35) Mean Corpuscular Hemoglobin Concent 34 g/dL (31-37) 35 g/dL (31-37) Red Cell Distribution Width 12.8 % (11.5-14.5) 12.8 % (11.5-14.5) Platelet Count 290 x10^3/uL (140-400) 285 x10^3/uL (140-400) Neutrophils (%) (Auto) 79 % (31-73) 80 % (31-73) Lymphocytes (%) (Auto) 13 % (24-48) 10 % (24-48) Monocytes (%) (Auto) 8 % (0-9) 9 % (0-9) Eosinophils (%) (Auto) 0 % (0-3) 0 % (0-3) Basophils (%) (Auto) 0 % (0-3) 1 % (0-3) Neutrophils # (Auto) 12.4 x10^3uL (1.8-7.7) 13.0 x10^3uL (1.8-7.7) Lymphocytes # (Auto) 2.0 x10^3/uL (1.0-4.8) 1.7 x10^3/uL (1.0-4.8) Monocytes # (Auto) 1.3 x10^3/uL (0.0-1.1) 1.4 x10^3/uL (0.0-1.1) Eosinophils # (Auto) 0.0 x10^3/uL (0.0-0.7) 0.0 x10^3/uL (0.0-0.7) Basophils # (Auto) 0.1 x10^3/uL (0.0-0.2) 0.1 x10^3/uL (0.0-0.2) Sodium Level 135 mmol/L (136-145) 133 mmol/L (136-145) Potassium Level 4.0 mmol/L (3.5-5.1) 4.1 mmol/L (3.5-5.1) Chloride Level 104 mmol/L (98-107) 103 mmol/L (98-107) Carbon Dioxide Level 28 mmol/L (21-32) 26 mmol/L (21-32) Anion Gap 3 (6-14) 4 (6-14) Blood Urea Nitrogen 10 mg/dL (8-26) 12 mg/dL (8-26) Creatinine 0.9 mg/dL (0.7-1.3) 1.0 mg/dL (0.7-1.3) Estimated GFR (Cockcroft-Gault) 96.0 85.0 BUN/Creatinine Ratio 11 (6-20) 12 (6-20) Glucose Level 76 mg/dL (70-99) 104 mg/dL (70-99) Calcium Level 9.2 mg/dL (8.5-10.1) 8.4 mg/dL (8.5-10.1) Total Bilirubin 0.4 mg/dL (0.2-1.0) 0.4 mg/dL (0.2-1.0) Aspartate Amino Transf (AST/SGOT) 38 U/L (15-37) 30 U/L (15-37) Alanine Aminotransferase (ALT/SGPT) 58 U/L (16-63) 48 U/L (16-63) Alkaline Phosphatase 106 U/L (46-116) 96 U/L (46-116) Total Protein 8.4 g/dL (6.4-8.2) 7.5 g/dL (6.4-8.2) Albumin 2.8 g/dL (3.4-5.0) 2.3 g/dL (3.4-5.0) Albumin/Globulin Ratio 0.5 (1.0-1.7) 0.4 (1.0-1.7) Lactic Acid Level 1.1 mmol/L (0.4-2.0) Laboratory Tests Test 10/11/17 15:52 10/11/17 16:00 10/12/17 04:33 Prothrombin Time 16.0 SEC (11.7-14.0) Prothromb Time International Ratio 1.3 (0.8-1.1) White Blood Count 15.8 x10^3/uL (4.0-11.0) 16.2 x10^3/uL (4.0-11.0) Red Blood Count 4.36 x10^6/uL (4.30-5.70) 3.98 x10^6/uL (4.30-5.70) Hemoglobin 13.7 g/dL (13.0-17.5) 12.8 g/dL (13.0-17.5) Hematocrit 40.7 % (39.0-53.0) 36.7 % (39.0-53.0) Mean Corpuscular Volume 93 fL (79-100) 92 fL (79-100) Mean Corpuscular Hemoglobin 32 pg (25-35) 32 pg (25-35) Mean Corpuscular Hemoglobin Concent 34 g/dL (31-37) 35 g/dL (31-37) Red Cell Distribution Width 12.8 % (11.5-14.5) 12.8 % (11.5-14.5) Platelet Count 290 x10^3/uL (140-400) 285 x10^3/uL (140-400) Neutrophils (%) (Auto) 79 % (31-73) 80 % (31-73) Lymphocytes (%) (Auto) 13 % (24-48) 10 % (24-48) Monocytes (%) (Auto) 8 % (0-9) 9 % (0-9) Eosinophils (%) (Auto) 0 % (0-3) 0 % (0-3) Basophils (%) (Auto) 0 % (0-3) 1 % (0-3) Neutrophils # (Auto) 12.4 x10^3uL (1.8-7.7) 13.0 x10^3uL (1.8-7.7) Lymphocytes # (Auto) 2.0 x10^3/uL (1.0-4.8) 1.7 x10^3/uL (1.0-4.8) Monocytes # (Auto) 1.3 x10^3/uL (0.0-1.1) 1.4 x10^3/uL (0.0-1.1) Eosinophils # (Auto) 0.0 x10^3/uL (0.0-0.7) 0.0 x10^3/uL (0.0-0.7) Basophils # (Auto) 0.1 x10^3/uL (0.0-0.2) 0.1 x10^3/uL (0.0-0.2) Sodium Level 135 mmol/L (136-145) 133 mmol/L (136-145) Potassium Level 4.0 mmol/L (3.5-5.1) 4.1 mmol/L (3.5-5.1) Chloride Level 104 mmol/L (98-107) 103 mmol/L (98-107) Carbon Dioxide Level 28 mmol/L (21-32) 26 mmol/L (21-32) Anion Gap 3 (6-14) 4 (6-14) Blood Urea Nitrogen 10 mg/dL (8-26) 12 mg/dL (8-26) Creatinine 0.9 mg/dL (0.7-1.3) 1.0 mg/dL (0.7-1.3) Estimated GFR (Cockcroft-Gault) 96.0 85.0 BUN/Creatinine Ratio 11 (6-20) 12 (6-20) Glucose Level 76 mg/dL (70-99) 104 mg/dL (70-99) Calcium Level 9.2 mg/dL (8.5-10.1) 8.4 mg/dL (8.5-10.1) Total Bilirubin 0.4 mg/dL (0.2-1.0) 0.4 mg/dL (0.2-1.0) Aspartate Amino Transf (AST/SGOT) 38 U/L (15-37) 30 U/L (15-37) Alanine Aminotransferase (ALT/SGPT) 58 U/L (16-63) 48 U/L (16-63) Alkaline Phosphatase 106 U/L (46-116) 96 U/L (46-116) Total Protein 8.4 g/dL (6.4-8.2) 7.5 g/dL (6.4-8.2) Albumin 2.8 g/dL (3.4-5.0) 2.3 g/dL (3.4-5.0) Albumin/Globulin Ratio 0.5 (1.0-1.7) 0.4 (1.0-1.7) Lactic Acid Level 1.1 mmol/L (0.4-2.0) Medications Current Medications Morphine Sulfate (Morphine Sulfate) 2 mg 1X ONCE IV Last administered on at 16:34; Start 10/11/17 at 16:00; Stop 10/11/17 at 16:06; Status DC Ondansetron HCl (Zofran) 4 mg 1X ONCE IV Last administered on 10/11/17at 16:33 ; Start 10/11/17 at 16:00; Stop 10/11/17 at 16:06; Status DC Iohexol (Omnipaque 300 Mg/ml) 75 ml 1X ONCE IV Last administered on 10/11/17at 16:27; Start 10/11/17 at 16:15; Stop 10/11/17 at 16:16; Status DC Info (CONTRAST GIVEN -- Rx MONITORING) 1 each PRN DAILY PRN MC SEE COMMENTS; Start 10/11/17 at 16:15; Stop 10/13/17 at 16:14 Clindamycin Phosphate 50 ml @ 100 mls/hr 1X ONCE IV Last administered on 10/11at 20:13; Start 10/11/17 at 17:15; Stop 10/11/17 at 17:44; Status DC Ondansetron HCl (Zofran) 4 mg PRN Q8HRS PRN IV NAUSEA/VOMITING Last administered on 10/12/17at 08:49; Start 10/11/17 at 17:15; Stop 10/12/17 at 17:14 Fentanyl Citrate (Fentanyl 2ml Vial) 50 mcg PRN Q1HR PRN IV PAIN Last administered on 10/11/17at 19:12; Start 10/11/17 at 17:15; Stop 10/12/17 at 17:14 Acetaminophen (Tylenol) 650 mg PRN Q4HRS PRN PO FEVER Last administered on 10/12at 04:22; Start 10/11/17 at 17:15; Stop 10/12/17 at 17:14 Vancomycin HCl (Vanco Per Pharmacy) 1 each PRN DAILY PRN MC SEE COMMENTS Last administered on 10/11/17at 20:04; Start 10/11/17 at 17:30 Vancomycin HCl 2 gm/Sodium Chloride 500 ml @ 250 mls/hr 1X ONCE IV Last administered on 10/11/17at 18:02; Start 10/11/17 at 17:45; Stop 10/11/17 at 19:44 ; Status DC Vancomycin HCl 1 gm/Sodium Chloride 250 ml @ 250 mls/hr Q8H IV Last administered on 10/12/17at 08:51; Start 10/12/17 at 02:00 Vancomycin HCl (Vancomycin Trough Level) 1 each 1X ONCE MC ; Start 10/12/17 at 17:30; Stop 10/12/17 at 17:31 Enoxaparin Sodium (Lovenox 40mg Syringe) 40 mg Q24H SQ ; Start 10/11/17 at 20:30 Ketorolac Tromethamine (Toradol 30mg Vial) 30 mg PRN Q6HRS PRN IV PAIN Last administered on 10/12/17at 11:34; Start 10/11/17 at 21:30; Stop 10/16/17 at 21:29 Tramadol HCl (Ultram) 50 mg PRN Q4HRS PRN PO PAIN Last administered on at 00:26; Start 10/11/17 at 21:30 Levofloxacin/ Dextrose 150 ml @ 100 mls/hr Q24H IV Last administered on at 04:56; Start 10/12/17 at 05:00 Sodium Chloride 1,000 ml @ 1,000 mls/hr 1X ONCE IV Last administered on at 04:22; Start 10/12/17 at 04:15; Stop 10/12/17 at 05:14; Status DC Sodium Chloride 1,000 ml @ 125 mls/hr Q8H IV Last administered on 10/12/17at 06 :05; Start 10/12/17 at 05:15 Lidocaine/Sodium Bicarbonate (Buffered Lidocaine 1%) 3 ml STK-MED ONCE .ROUTE ; Start 10/12/17 at 12:17; Stop 10/12/17 at 12:18; Status DC Vitals/I & O Vital Sign - Last 24 Hours 10/11/17 10/11/17 10/11/17 10/11/17 15:40 16:00 16:30 16:34 Temp 97.7 97.7 Pulse 69 72 85 Resp 18 24 20 B/P (MAP) 146/70 (95) 133/81 (98) 145/85 (105) Pulse Ox 97 96 O2 Delivery Room Air Room Air 10/11/17 10/11/17 10/11/17 10/11/17 17:00 17:30 18:00 18:07 Pulse 70 74 76 Resp 28 24 40 B/P (MAP) 134/72 (92) 136/73 (94) 121/74 (90) Pulse Ox 95 95 96 96 O2 Delivery Room Air Room Air Room Air 10/11/17 10/11/17 10/11/17 10/11/17 18:30 19:00 19:12 19:30 Pulse 72 78 72 Resp 26 20 24 20 B/P (MAP) 132/75 (94) 145/86 (105) 156/89 (111) Pulse Ox 94 94 95 92 O2 Delivery Room Air Room Air 10/11/17 10/11/17 10/11/17 10/11/17 19:45 20:00 20:30 20:48 Temp 97.8 97.8 Pulse 84 82 93 Resp 18 20 20 18 B/P (MAP) 148/87 (107) 163/87 (112) 150/81 (104) Pulse Ox 93 92 94 94 O2 Delivery Room Air Room Air 10/11/17 10/11/17 10/12/17 10/12/17 21:15 23:00 00:26 01:40 Temp 99.0 99.0 Pulse 100 Resp 18 16 18 B/P (MAP) 122/71 (88) Pulse Ox 91 O2 Delivery Room Air Room Air Room Air 10/12/17 10/12/17 10/12/17 10/12/17 03:00 07:00 08:00 10:58 Temp 102.4 97.8 97.9 102.4 97.8 97.9 Pulse 102 77 62 Resp 18 18 18 B/P (MAP) 127/75 (92) 130/83 (99) 129/76 (93) Pulse Ox 90 88 97 O2 Delivery Room Air Room Air Room Air Room Air Intake and Output 10/11/17 10/11/17 10/12/17 15:00 23:00 07:00 Intake Total 1450 ml Balance 1450 ml CASTLE,NIAL K III DO Oct 12, 2017 12:35
[2017-10-12] MEDS ORDERED: fentaNYL PF VIAL 100 MCG/2 ML VIAL ONE (12:47)
[2017-10-12] MEDS ORDERED: MIDAZOLAM HCL/PF 2 MG/2 ML VIAL. ONE (12:47)
[2017-10-12] MEDS ORDERED: LIDOCAINE WITH 8.4% SOD BICARB 3 ML DISP.SYRIN. IJ ONE ×2 (13:15)
[2017-10-12] MEDS ORDERED: fentaNYL PF VIAL 100 MCG/2 ML VIAL IV ONE ×2 (13:15)
[2017-10-12] MEDS ORDERED: MIDAZOLAM HCL/PF 2 MG/2 ML VIAL. IV ONE ×2 (13:15)
--- NOTE | 2017-10-12 14:41 | RAD ---
CT-guided placement of percutaneous drain in the right upper chest and abdominal fluid collection 10/12/2017 Indication: Right upper chest and abdominal fluid collection extending from subcutaneous tissues, deep to the right anterior ribs, anterior to the liver. Unknown etiology. Possible traumatic injury. Discussion: The risks and benefits of the procedure were discussed the patient. Informed consent was obtained. A timeout procedure was performed. The anterolateral chest and abdomen were prepped and draped using sterile barrier technique. CT imaging was repeated confirming the fluid collection extending from the subcutaneous tissues of the inferior chest and right upper abdomen to the perihepatic space. 1% lidocaine without epinephrine was administered for local anesthesia. Under intermittent CT guidance a needle was advanced into the collection. A guidewire was advanced into this collection over which, following dilatation a 10 [place]ian drainage catheter was placed. Aspirated approximately 40 cc of purulent material was aspirated. Samples were sent for further evaluation including Gram stain and culture. The drainage catheter was secured in place. Its position was confirmed with CT. Sterile dressings were applied. The catheter was connected to bulb suction drainage. No immediate complications were identified. The procedures performed under conscious sedation including continuous cardiopulmonary monitoring via a dedicated sedation nurse. [id number] sedation time: 30 minutes Impression: CT-guided drainage of right upper chest and abdominal fluid collection. PQRS Compliance Statement: One or more of the following individualized dose reduction techniques were utilized for this examination: 1. Automated exposure control 2. Adjustment of the mA and/or kV according to patient size 3. Use of iterative reconstruction technique
[2017-10-12] MEDS: fentaNYL PF VIAL 100 MCG/2 ML VIAL IV PRN (15:39)
[2017-10-12 17:48] LABS: VANC TR 7.5 mcg/mL (10.0-20.0)
[2017-10-12] MEDS: VANCOMYCIN 1.25 GM in IV NORMAL SALINE 250ML 250 ML IV SCH (18:02)
[2017-10-12] MEDS: VANCOMYCIN PER PHARMACY MC PRN (18:11)
[2017-10-12] MEDS: ENOXAPARIN 40 MG/0.4 ML SYRINGE. SQ SCH (20:30)
--- NOTE | 2017-10-12 21:58 | CONS ---
DATE OF CONSULTATION: REFERRING PHYSICIAN: Dr. Napoles. REASON FOR CONSULTATION: Fever, right anterior chest wall abscess. HISTORY OF PRESENT ILLNESS: A 36-year-old male presented to the ER with complaints of pulling out a muscle on the right side with repeat injury 3 weeks ago. 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 He started having worsening pain, swelling, redness. He had a chest x-ray done outside the hospital a week ago, which was reported to be negative. The patient is currently incarcerated. He denied any chest pain, shortness of breath, nausea, vomiting, diarrhea, fever, abdominal pain, symptoms, though the patient had fever since admission here. He was started on empiric IV vancomycin and Levaquin as HE HAS ALLERGIES TO PENICILLIN. He says it makes him sick, but he does not know the exact reaction. The patient has underwent CTA, which showed a complex fluid collection involving the upper anterior abdominal wall, producing a mass-like effect upon the anterior aspect of the liver and protruding into the subcutaneous soft tissue. It appeared to be chest wall hematoma or infection, small right pleural effusion with right basilar atelectasis, mild hepatomegaly with moderate splenomegaly, mild portacaval and celiac region adenopathy. PAST MEDICAL HISTORY: Nothing significant. PAST SURGICAL HISTORY: Appendectomy. ALLERGIES: PENICILLIN MAKES HIM SICK. He does not recall if he has got amoxicillin or Augmentin in the past. REVIEW OF SYSTEMS: Negative except for above in HPI. PHYSICAL EXAMINATION: VITAL SIGNS: Temperature 102.4, current temperature 97.9, pulse 62, respiration rate 18, blood pressure 129/76, oxygen saturation 97% on room air. GENERAL: Well-developed, well-nourished male, in no acute distress, appears comfortable, lying comfortably in bed. HEENT: Normocephalic, atraumatic, anicteric. No thrush. NECK: Supple. No JVD. LUNGS: Clear bilaterally. No wheezing. HEART: S1, S2 present. No gallops or murmurs. CHEST WALL: Right anterior lower chest wall, upper abdominal wall shows mild swelling, tenderness, erythema over the swelling, no open skin wounds noted, tender. ABDOMEN: Soft, nontender, nondistended. No rebound, no guarding. Bowel sounds present. EXTREMITIES: No edema, no cyanosis, no clubbing. DERMATOLOGIC: No generalized rash. Warm, dry. NEUROLOGIC: Alert and oriented x 3. Grossly nonfocal. PSYCHIATRIC: Appropriate mood and affect. LABORATORY DATA: WBC 16.2, hemoglobin 12.8, hematocrit 36.7, platelets 285, neutrophil 80. Sodium 133, potassium 4.1, chloride 103, bicarbonate 26, BUN 12, creatinine 1.0, glucose 104, lactate 1.1, calcium 8.4, total bilirubin 0.4, AST 30, ALT 48, alkaline phosphatase 96, total protein 7.5, albumin 2.3. Coagulation: INR 1.3. IMAGING: CTA shows complex fluid collection involving the upper anterior abdominal wall, producing a mass-like effect with anterior aspect of the liver and protruding into the subcutaneous tissue, small pleural effusion and mild right basilar atelectasis, mild hepatomegaly and splenomegaly, mild portacaval and celiac region adenopathy. IMPRESSION: 1. Complex fluid collection anterior chest wall from injury,abscess vs other 2. Fever. from above 3. Leukocytosis.from above 4. History of appendectomy. 5. Intra-abdominal adenopathy. 6. Multiple tattoos for a couple of years. 7. HISTORY OF ALLERGIES TO PENICILLIN, MAKES HIM SICK. RECOMMENDATIONS: 1. Continue empiric vancomycin and Levaquin. Agree with IR drainage sent for routine studies including cultures. 2. Continue local care. 3. Follow up cultures and susceptibility results. 4. Continue supportive care. 5. Follow up blood cultures, which are pending at this time. 6. Monitor renal functions closely. 7. General surgery is following. Thank you, Dr. Napoles for consulting Infectious Disease to participate in this patient's care. If you have any questions, do not hesitate to contact me. AMILCAR MIR MD DR: TONIA/amandeep JOB#: [id number] / [id number] KRISHNA
[2017-10-13] MEDS: KETOROLAC 30 MG/ML VIAL. IV PRN ×4 (00:10→18:51)
[2017-10-13] MEDS ORDERED: ACETAMINOPHEN 325 MG TABLET. PO PRN (00:15)
[2017-10-13] MEDS: VANCOMYCIN 1.25 GM in IV NORMAL SALINE 250ML 250 ML IV SCH ×4 (01:47→21:14)
[2017-10-13 03:00] VITALS: BP 117/67
[2017-10-13] MEDS: IV NORMAL SALINE 1000ML BAG 1,000 ML IV SCH ×3 (05:36→21:11)
[2017-10-13] MEDS: traMADol 50 MG TABLET PO PRN ×3 (05:37→18:52)
[2017-10-13 07:00] VITALS: BP 115/71
--- NOTE | 2017-10-13 08:50 | PDOC ---
[employer] 10/13/17 0850: SURGICAL PROGRESS NOTE Subjective feels a little better no n/v Vital Signs Vital Signs Date Time Temp Pulse Resp B/P (MAP) Pulse Ox O2 Delivery O2 Flow Rate FiO2 10/13/17 07:00 96.0 66 18 115/71 (86) 88 Room Air 96.0 10/13/17 03:00 2.0 I&O Intake and Output 10/13/17 07:00 Intake Total 03583 ml Output Total 636 ml Balance 11263 ml Intake Oral 2190 ml IV Total 3900 ml Other 5910 ml Output Urine Total 500 ml Drainage Total 136 ml # Voids 5 General: Alert, Oriented X3, Cooperative, No acute distress Abdomen: Soft, Other (drain in place) Labs Laboratory Tests Test 10/11/17 15:52 10/11/17 16:00 10/12/17 02:11 10/12/17 04:33 Prothrombin Time 16.0 SEC (11.7-14.0) Prothromb Time International Ratio 1.3 (0.8-1.1) White Blood Count 15.8 x10^3/uL (4.0-11.0) 16.2 x10^3/uL (4.0-11.0) Red Blood Count 4.36 x10^6/uL (4.30-5.70) 3.98 x10^6/uL (4.30-5.70) Hemoglobin 13.7 g/dL (13.0-17.5) 12.8 g/dL (13.0-17.5) Hematocrit 40.7 % (39.0-53.0) 36.7 % (39.0-53.0) Mean Corpuscular Volume 93 fL (79-100) 92 fL (79-100) Mean Corpuscular Hemoglobin 32 pg (25-35) 32 pg (25-35) Mean Corpuscular Hemoglobin Concent 34 g/dL (31-37) 35 g/dL (31-37) Red Cell Distribution Width 12.8 % (11.5-14.5) 12.8 % (11.5-14.5) Platelet Count 290 x10^3/uL (140-400) 285 x10^3/uL (140-400) Neutrophils (%) (Auto) 79 % (31-73) 80 % (31-73) Lymphocytes (%) (Auto) 13 % (24-48) 10 % (24-48) Monocytes (%) (Auto) 8 % (0-9) 9 % (0-9) Eosinophils (%) (Auto) 0 % (0-3) 0 % (0-3) Basophils (%) (Auto) 0 % (0-3) 1 % (0-3) Neutrophils # (Auto) 12.4 x10^3uL (1.8-7.7) 13.0 x10^3uL (1.8-7.7) Lymphocytes # (Auto) 2.0 x10^3/uL (1.0-4.8) 1.7 x10^3/uL (1.0-4.8) Monocytes # (Auto) 1.3 x10^3/uL (0.0-1.1) 1.4 x10^3/uL (0.0-1.1) Eosinophils # (Auto) 0.0 x10^3/uL (0.0-0.7) 0.0 x10^3/uL (0.0-0.7) Basophils # (Auto) 0.1 x10^3/uL (0.0-0.2) 0.1 x10^3/uL (0.0-0.2) Sodium Level 135 mmol/L (136-145) 133 mmol/L (136-145) Potassium Level 4.0 mmol/L (3.5-5.1) 4.1 mmol/L (3.5-5.1) Chloride Level 104 mmol/L (98-107) 103 mmol/L (98-107) Carbon Dioxide Level 28 mmol/L (21-32) 26 mmol/L (21-32) Anion Gap 3 (6-14) 4 (6-14) Blood Urea Nitrogen 10 mg/dL (8-26) 12 mg/dL (8-26) Creatinine 0.9 mg/dL (0.7-1.3) 1.0 mg/dL (0.7-1.3) Estimated GFR (Cockcroft-Gault) 96.0 85.0 BUN/Creatinine Ratio 11 (6-20) 12 (6-20) Glucose Level 76 mg/dL (70-99) 104 mg/dL (70-99) Calcium Level 9.2 mg/dL (8.5-10.1) 8.4 mg/dL (8.5-10.1) Total Bilirubin 0.4 mg/dL (0.2-1.0) 0.4 mg/dL (0.2-1.0) Aspartate Amino Transf (AST/SGOT) 38 U/L (15-37) 30 U/L (15-37) Alanine Aminotransferase (ALT/SGPT) 58 U/L (16-63) 48 U/L (16-63) Alkaline Phosphatase 106 U/L (46-116) 96 U/L (46-116) Total Protein 8.4 g/dL (6.4-8.2) 7.5 g/dL (6.4-8.2) Albumin 2.8 g/dL (3.4-5.0) 2.3 g/dL (3.4-5.0) Albumin/Globulin Ratio 0.5 (1.0-1.7) 0.4 (1.0-1.7) Nasal Screen MRSA (PCR) Positive (Negative) Lactic Acid Level 1.1 mmol/L (0.4-2.0) Test 10/12/17 17:25 Vancomycin Level Trough 7.5 mcg/mL (10.0-20.0) Vancomycin Last Dose Date Unknown Vancomycin Last Dose Time Unknown Laboratory Tests Test 10/12/17 17:25 Vancomycin Level Trough 7.5 mcg/mL (10.0-20.0) Vancomycin Last Dose Date Unknown Vancomycin Last Dose Time Unknown Problem List Problems Medical Problems: (1) Chest wall abscess Status: Acute Assessment/Plan continue drain cultures pending SCOTT DAMIAN MD 10/13/17 1106: SURGICAL PROGRESS NOTE Assessment/Plan Pt seen and examined. Agree with Ms. Medina's note Pt feels better, drain with pus cont drain and abx. SUE MEDINA APRN Oct 13, 2017 08:50 SCOTT DAMIAN MD Oct 13, 2017 11:06
[2017-10-13 09:30] LABS: BASO # 0.1 x10^3/uL (0.0-0.2); BASO % 1 % (0-3); EOS # 0.1 x10^3/uL (0.0-0.7); EOS % 1 % (0-3); HEMATOCRIT 35.3 % (39.0-53.0); HEMOGLOBIN 12.2 g/dL (13.0-17.5); LYMPH # 1.4 x10^3/uL (1.0-4.8); LYMPH % 12 % (24-48); MEAN CORPUSCULAR HEMOGLOBIN 32 pg (25-35); MEAN CORPUSCULAR HGB CONC 35 g/dL (31-37); MEAN CORPUSCULAR VOLUME 94 fL (79-100); MONO % 8 % (0-9); NEUT # 9.5 x10^3uL (1.8-7.7); NEUT % 79 % (31-73); PLATELET COUNT 238 x10^3/uL (140-400); RED BLOOD COUNT 3.78 x10^6/uL (4.30-5.70); RED CELL DISTRIBUTION WIDTH 12.9 % (11.5-14.5); WHITE BLOOD COUNT 12.1 x10^3/uL (4.0-11.0)
[2017-10-13 09:44] LABS: CREATININE 0.9 mg/dL (0.7-1.3); POTASSIUM 3.7 mmol/L (3.5-5.1)
[2017-10-13] MEDS: HYDROcodone/APAP 5/325MG 1 TAB TABLET PO PRN ×3 (10:46→21:16)
[2017-10-13 11:00] VITALS: BP 129/73
--- NOTE | 2017-10-13 12:09 | PDOC ---
PROGRESS NOTES Chief Complaint Chief Complaint Chest wall abscess Small right pleural effusion with mild right basilar atelectasis. Mild hepatomegaly and moderate splenomegaly, Mild portacaval and celiac region adenopathy. Leukocytosis History of Present Illness History of Present Illness Pt seen and examined Dw nurse Reports overnight fever [address], contains purulent fluid Pt complains of pain and pressure Vitals Vitals Vital Signs Date Time Temp Pulse Resp B/P (MAP) Pulse Ox O2 Delivery O2 Flow Rate FiO2 10/13/17 10:46 Room Air 10/13/17 07:00 96.0 66 18 115/71 (86) 88 96.0 10/13/17 03:00 2.0 Physical Exam Physical Exam HILARIA drain R chest wall, clean dry intact dressing over drain General: Alert, Oriented X3, Cooperative, No acute distress Heart: Regular rate, Normal S1, Normal S2, No murmurs Lungs: Clear Abdomen: Soft, No tenderness Extremities: No clubbing, No cyanosis, No edema Skin: No rashes, No breakdown Labs LABS Laboratory Tests Test 10/12/17 17:25 10/13/17 08:59 Vancomycin Level Trough 7.5 mcg/mL (10.0-20.0) Vancomycin Last Dose Date Unknown Vancomycin Last Dose Time Unknown White Blood Count 12.1 x10^3/uL (4.0-11.0) Red Blood Count 3.78 x10^6/uL (4.30-5.70) Hemoglobin 12.2 g/dL (13.0-17.5) Hematocrit 35.3 % (39.0-53.0) Mean Corpuscular Volume 94 fL (79-100) Mean Corpuscular Hemoglobin 32 pg (25-35) Mean Corpuscular Hemoglobin Concent 35 g/dL (31-37) Red Cell Distribution Width 12.9 % (11.5-14.5) Platelet Count 238 x10^3/uL (140-400) Neutrophils (%) (Auto) 79 % (31-73) Lymphocytes (%) (Auto) 12 % (24-48) Monocytes (%) (Auto) 8 % (0-9) Eosinophils (%) (Auto) 1 % (0-3) Basophils (%) (Auto) 1 % (0-3) Neutrophils # (Auto) 9.5 x10^3uL (1.8-7.7) Lymphocytes # (Auto) 1.4 x10^3/uL (1.0-4.8) Monocytes # (Auto) 1.0 x10^3/uL (0.0-1.1) Eosinophils # (Auto) 0.1 x10^3/uL (0.0-0.7) Basophils # (Auto) 0.1 x10^3/uL (0.0-0.2) Sodium Level 137 mmol/L (136-145) Potassium Level 3.7 mmol/L (3.5-5.1) Chloride Level 103 mmol/L (98-107) Carbon Dioxide Level 29 mmol/L (21-32) Anion Gap 5 (6-14) Blood Urea Nitrogen 13 mg/dL (8-26) Creatinine 0.9 mg/dL (0.7-1.3) Estimated GFR (Cockcroft-Gault) 96.0 Glucose Level 124 mg/dL (70-99) Calcium Level 8.0 mg/dL (8.5-10.1) Review of Systems Review of Systems CO pain CO fever Assessment and Plan Assessmemt and Plan Problems Medical Problems: (1) Chest wall abscess Status: Acute Chest wall abscess Small right pleural effusion with mild right basilar atelectasis. Mild hepatomegaly and moderate splenomegaly, Mild portacaval and celiac region adenopathy. Leukocytosis Plan: Continue ABx Continue wound care Monitor labs Adjust narcotics D/C when afebrile Comment Review of Relevant I have reviewed the following items janna (where applicable) has been applied. Labs Laboratory Tests Test 10/11/17 15:52 10/11/17 16:00 10/12/17 02:11 10/12/17 04:33 Prothrombin Time 16.0 SEC (11.7-14.0) Prothromb Time International Ratio 1.3 (0.8-1.1) White Blood Count 15.8 x10^3/uL (4.0-11.0) 16.2 x10^3/uL (4.0-11.0) Red Blood Count 4.36 x10^6/uL (4.30-5.70) 3.98 x10^6/uL (4.30-5.70) Hemoglobin 13.7 g/dL (13.0-17.5) 12.8 g/dL (13.0-17.5) Hematocrit 40.7 % (39.0-53.0) 36.7 % (39.0-53.0) Mean Corpuscular Volume 93 fL (79-100) 92 fL (79-100) Mean Corpuscular Hemoglobin 32 pg (25-35) 32 pg (25-35) Mean Corpuscular Hemoglobin Concent 34 g/dL (31-37) 35 g/dL (31-37) Red Cell Distribution Width 12.8 % (11.5-14.5) 12.8 % (11.5-14.5) Platelet Count 290 x10^3/uL (140-400) 285 x10^3/uL (140-400) Neutrophils (%) (Auto) 79 % (31-73) 80 % (31-73) Lymphocytes (%) (Auto) 13 % (24-48) 10 % (24-48) Monocytes (%) (Auto) 8 % (0-9) 9 % (0-9) Eosinophils (%) (Auto) 0 % (0-3) 0 % (0-3) Basophils (%) (Auto) 0 % (0-3) 1 % (0-3) Neutrophils # (Auto) 12.4 x10^3uL (1.8-7.7) 13.0 x10^3uL (1.8-7.7) Lymphocytes # (Auto) 2.0 x10^3/uL (1.0-4.8) 1.7 x10^3/uL (1.0-4.8) Monocytes # (Auto) 1.3 x10^3/uL (0.0-1.1) 1.4 x10^3/uL (0.0-1.1) Eosinophils # (Auto) 0.0 x10^3/uL (0.0-0.7) 0.0 x10^3/uL (0.0-0.7) Basophils # (Auto) 0.1 x10^3/uL (0.0-0.2) 0.1 x10^3/uL (0.0-0.2) Sodium Level 135 mmol/L (136-145) 133 mmol/L (136-145) Potassium Level 4.0 mmol/L (3.5-5.1) 4.1 mmol/L (3.5-5.1) Chloride Level 104 mmol/L (98-107) 103 mmol/L (98-107) Carbon Dioxide Level 28 mmol/L (21-32) 26 mmol/L (21-32) Anion Gap 3 (6-14) 4 (6-14) Blood Urea Nitrogen 10 mg/dL (8-26) 12 mg/dL (8-26) Creatinine 0.9 mg/dL (0.7-1.3) 1.0 mg/dL (0.7-1.3) Estimated GFR (Cockcroft-Gault) 96.0 85.0 BUN/Creatinine Ratio 11 (6-20) 12 (6-20) Glucose Level 76 mg/dL (70-99) 104 mg/dL (70-99) Calcium Level 9.2 mg/dL (8.5-10.1) 8.4 mg/dL (8.5-10.1) Total Bilirubin 0.4 mg/dL (0.2-1.0) 0.4 mg/dL (0.2-1.0) Aspartate Amino Transf (AST/SGOT) 38 U/L (15-37) 30 U/L (15-37) Alanine Aminotransferase (ALT/SGPT) 58 U/L (16-63) 48 U/L (16-63) Alkaline Phosphatase 106 U/L (46-116) 96 U/L (46-116) Total Protein 8.4 g/dL (6.4-8.2) 7.5 g/dL (6.4-8.2) Albumin 2.8 g/dL (3.4-5.0) 2.3 g/dL (3.4-5.0) Albumin/Globulin Ratio 0.5 (1.0-1.7) 0.4 (1.0-1.7) Nasal Screen MRSA (PCR) Positive (Negative) Lactic Acid Level 1.1 mmol/L (0.4-2.0) Test 10/12/17 17:25 10/13/17 08:59 Vancomycin Level Trough 7.5 mcg/mL (10.0-20.0) Vancomycin Last Dose Date Unknown Vancomycin Last Dose Time Unknown White Blood Count 12.1 x10^3/uL (4.0-11.0) Red Blood Count 3.78 x10^6/uL (4.30-5.70) Hemoglobin 12.2 g/dL (13.0-17.5) Hematocrit 35.3 % (39.0-53.0) Mean Corpuscular Volume 94 fL (79-100) Mean Corpuscular Hemoglobin 32 pg (25-35) Mean Corpuscular Hemoglobin Concent 35 g/dL (31-37) Red Cell Distribution Width 12.9 % (11.5-14.5) Platelet Count 238 x10^3/uL (140-400) Neutrophils (%) (Auto) 79 % (31-73) Lymphocytes (%) (Auto) 12 % (24-48) Monocytes (%) (Auto) 8 % (0-9) Eosinophils (%) (Auto) 1 % (0-3) Basophils (%) (Auto) 1 % (0-3) Neutrophils # (Auto) 9.5 x10^3uL (1.8-7.7) Lymphocytes # (Auto) 1.4 x10^3/uL (1.0-4.8) Monocytes # (Auto) 1.0 x10^3/uL (0.0-1.1) Eosinophils # (Auto) 0.1 x10^3/uL (0.0-0.7) Basophils # (Auto) 0.1 x10^3/uL (0.0-0.2) Sodium Level 137 mmol/L (136-145) Potassium Level 3.7 mmol/L (3.5-5.1) Chloride Level 103 mmol/L (98-107) Carbon Dioxide Level 29 mmol/L (21-32) Anion Gap 5 (6-14) Blood Urea Nitrogen 13 mg/dL (8-26) Creatinine 0.9 mg/dL (0.7-1.3) Estimated GFR (Cockcroft-Gault) 96.0 Glucose Level 124 mg/dL (70-99) Calcium Level 8.0 mg/dL (8.5-10.1) Laboratory Tests Test 10/12/17 17:25 10/13/17 08:59 Vancomycin Level Trough 7.5 mcg/mL (10.0-20.0) Vancomycin Last Dose Date Unknown Vancomycin Last Dose Time Unknown White Blood Count 12.1 x10^3/uL (4.0-11.0) Red Blood Count 3.78 x10^6/uL (4.30-5.70) Hemoglobin 12.2 g/dL (13.0-17.5) Hematocrit 35.3 % (39.0-53.0) Mean Corpuscular Volume 94 fL (79-100) Mean Corpuscular Hemoglobin 32 pg (25-35) Mean Corpuscular Hemoglobin Concent 35 g/dL (31-37) Red Cell Distribution Width 12.9 % (11.5-14.5) Platelet Count 238 x10^3/uL (140-400) Neutrophils (%) (Auto) 79 % (31-73) Lymphocytes (%) (Auto) 12 % (24-48) Monocytes (%) (Auto) 8 % (0-9) Eosinophils (%) (Auto) 1 % (0-3) Basophils (%) (Auto) 1 % (0-3) Neutrophils # (Auto) 9.5 x10^3uL (1.8-7.7) Lymphocytes # (Auto) 1.4 x10^3/uL (1.0-4.8) Monocytes # (Auto) 1.0 x10^3/uL (0.0-1.1) Eosinophils # (Auto) 0.1 x10^3/uL (0.0-0.7) Basophils # (Auto) 0.1 x10^3/uL (0.0-0.2) Sodium Level 137 mmol/L (136-145) Potassium Level 3.7 mmol/L (3.5-5.1) Chloride Level 103 mmol/L (98-107) Carbon Dioxide Level 29 mmol/L (21-32) Anion Gap 5 (6-14) Blood Urea Nitrogen 13 mg/dL (8-26) Creatinine 0.9 mg/dL (0.7-1.3) Estimated GFR (Cockcroft-Gault) 96.0 Glucose Level 124 mg/dL (70-99) Calcium Level 8.0 mg/dL (8.5-10.1) Microbiology 10/11/17 Blood Culture - Preliminary, Resulted NO GROWTH AFTER 1 DAY Medications Current Medications Morphine Sulfate (Morphine Sulfate) 2 mg 1X ONCE IV Last administered on at 16:34; Start 10/11/17 at 16:00; Stop 10/11/17 at 16:06; Status DC Ondansetron HCl (Zofran) 4 mg 1X ONCE IV Last administered on 10/11/17at 16:33 ; Start 10/11/17 at 16:00; Stop 10/11/17 at 16:06; Status DC Iohexol (Omnipaque 300 Mg/ml) 75 ml 1X ONCE IV Last administered on 10/11/17at 16:27; Start 10/11/17 at 16:15; Stop 10/11/17 at 16:16; Status DC Info (CONTRAST GIVEN -- Rx MONITORING) 1 each PRN DAILY PRN MC SEE COMMENTS; Start 10/11/17 at 16:15; Stop 10/13/17 at 16:14 Clindamycin Phosphate 50 ml @ 100 mls/hr 1X ONCE IV Last administered on 10/11at 20:13; Start 10/11/17 at 17:15; Stop 10/11/17 at 17:44; Status DC Ondansetron HCl (Zofran) 4 mg PRN Q8HRS PRN IV NAUSEA/VOMITING 1ST CHOICE Last administered on 10/12/17at 08:49; Start 10/11/17 at 17:15; Stop 10/12/17 at 17:14 ; Status DC Fentanyl Citrate (Fentanyl 2ml Vial) 50 mcg PRN Q1HR PRN IV PAIN Last administered on 10/12/17at 15:39; Start 10/11/17 at 17:15; Stop 10/12/17 at 17:14 ; Status DC Acetaminophen (Tylenol) 650 mg PRN Q4HRS PRN PO FEVER Last administered on 10/12at 15:03; Start 10/11/17 at 17:15; Stop 10/12/17 at 17:14; Status DC Vancomycin HCl (Vanco Per Pharmacy) 1 each PRN DAILY PRN MC SEE COMMENTS Last administered on 10/12/17at 18:11; Start 10/11/17 at 17:30 Vancomycin HCl 2 gm/Sodium Chloride 500 ml @ 250 mls/hr 1X ONCE IV Last administered on 10/11/17at 18:02; Start 10/11/17 at 17:45; Stop 10/11/17 at 19:44 ; Status DC Vancomycin HCl 1 gm/Sodium Chloride 250 ml @ 250 mls/hr Q8H IV Last administered on 10/12/17at 08:51; Start 10/12/17 at 02:00; Stop 10/12/17 at 17:55 ; Status DC Vancomycin HCl (Vancomycin Trough Level) 1 each 1X ONCE MC Last administered on 10/12/17at 17:30; Start 10/12/17 at 17:30; Stop 10/12/17 at 17:31; Status DC Enoxaparin Sodium (Lovenox 40mg Syringe) 40 mg Q24H SQ ; Start 10/11/17 at 20:30 Ketorolac Tromethamine (Toradol 30mg Vial) 30 mg PRN Q6HRS PRN IV MODERATE PAIN Last administered on 10/13/17at 06:37; Start 10/11/17 at 21:30; Stop at 21:29 Tramadol HCl (Ultram) 50 mg PRN Q4HRS PRN PO MODERATE PAIN Last administered on 10/13/17at 10:25; Start 10/11/17 at 21:30 Levofloxacin/ Dextrose 150 ml @ 100 mls/hr Q24H IV Last administered on at 05:37; Start 10/12/17 at 05:00 Sodium Chloride 1,000 ml @ 1,000 mls/hr 1X ONCE IV Last administered on at 04:22; Start 10/12/17 at 04:15; Stop 10/12/17 at 05:14; Status DC Sodium Chloride 1,000 ml @ 125 mls/hr Q8H IV Last administered on 10/13/17at 05 :36; Start 10/12/17 at 05:15 Lidocaine/Sodium Bicarbonate (Buffered Lidocaine 1%) 3 ml STK-MED ONCE .ROUTE ; Start 10/12/17 at 12:17; Stop 10/12/17 at 12:18; Status DC Midazolam HCl (Versed) 2 mg STK-MED ONCE .ROUTE ; Start 10/12/17 at 12:47; Stop 10/12/17 at 12:48; Status DC Fentanyl Citrate (Fentanyl 2ml Vial) 100 mcg STK-MED ONCE .ROUTE ; Start at 12:47; Stop 10/12/17 at 12:48; Status DC Lidocaine/Sodium Bicarbonate (Buffered Lidocaine 1%) 5 ml 1X ONCE IJ Last administered on 10/12/17at 13:15; Start 10/12/17 at 13:15; Stop 10/12/17 at 13:20 ; Status DC Midazolam HCl (Versed) 1 mg 1X ONCE IV Last administered on 10/12/17at 13:14; Start 10/12/17 at 13:15; Stop 10/12/17 at 13:20; Status DC Fentanyl Citrate (Fentanyl 2ml Vial) 100 mcg 1X ONCE IV Last administered on at 13:14; Start 10/12/17 at 13:15; Stop 10/12/17 at 13:20; Status DC Lidocaine/Sodium Bicarbonate (Buffered Lidocaine 1%) 5 ml 1X ONCE IJ ; Start at 13:15; Stop 10/12/17 at 13:20; Status DC Midazolam HCl (Versed) 1 mg 1X ONCE IV ; Start 10/12/17 at 13:15; Stop at 13:20; Status DC Fentanyl Citrate (Fentanyl 2ml Vial) 100 mcg 1X ONCE IV ; Start 10/12/17 at 13: 15; Stop 10/12/17 at 13:20; Status DC Vancomycin HCl 1.25 gm/Sodium Chloride 250 ml @ 167 mls/hr Q8H IV Last administered on 10/13/17at 01:47; Start 10/12/17 at 18:00 Vancomycin HCl (Vancomycin Trough Level) 1 each 1X ONCE MC ; Start 10/13/17 at 17:30; Stop 10/13/17 at 17:31 Acetaminophen (Tylenol) 650 mg PRN Q6HRS PRN PO FEVER Last administered on 10/13at 00:11; Start 10/13/17 at 00:15 Acetaminophen/ Hydrocodone Bitart (Lortab 5/325) 1 tab PRN Q4HRS PRN PO PAIN Last administered on 10/13/17at 10:46; Start 10/13/17 at 10:30 Acetaminophen/ Hydrocodone Bitart (Lortab 5/325) 2 tab PRN Q4HRS PRN PO PAIN; Start 10/13/17 at 10:30 Vitals/I & O Vital Sign - Last 24 Hours 10/12/17 10/12/17 10/12/17 10/12/17 12:55 13:00 13:05 13:10 Pulse 74 65 72 76 Resp 12 Pulse Ox 88 93 92 92 O2 Delivery Nasal Cannula Nasal Cannula Nasal Cannula Nasal Cannula O2 Flow Rate 2.0 2.0 2.0 2.0 10/12/17 10/12/17 10/12/17 10/12/17 13:14 13:15 13:21 13:35 Temp 98.2 98.2 Pulse 77 72 78 Resp 01 29 18 B/P (MAP) 132/76 (94) Pulse Ox 92 93 93 88 O2 Delivery Nasal Cannula Nasal Cannula Nasal Cannula Room Air O2 Flow Rate 2.0 2.0 10/12/17 10/12/17 10/12/17 10/12/17 13:39 13:49 14:04 14:18 Temp 98.2 98.0 98.1 98.2 98.0 98.1 Pulse 65 66 60 Resp 18 B/P (MAP) 120/68 (85) 107/67 (80) 120/68 (85) Pulse Ox 96 93 98 O2 Delivery Room Air Nasal Cannula Nasal Cannula Nasal Cannula O2 Flow Rate 2.0 2.0 2.0 2.0 10/12/17 10/12/17 10/12/17 10/12/17 14:34 15:04 15:34 15:39 Temp 101.3 102.0 101.8 101.3 102.0 101.8 Pulse 65 79 70 Resp 18 18 B/P (MAP) 126/74 (91) 128/75 (92) 109/63 (78) Pulse Ox 98 97 93 O2 Delivery Nasal Cannula Nasal Cannula Nasal Cannula Nasal Cannula O2 Flow Rate 2.0 2.0 2.0 2.0 10/12/17 10/12/17 10/12/17 10/12/17 16:10 16:33 19:00 20:05 Temp 99.8 99.8 Pulse 77 87 Resp 18 18 B/P (MAP) 111/65 (80) 111/59 (76) Pulse Ox 97 90 93 O2 Delivery Room Air Nasal Cannula Nasal Cannula Room Air O2 Flow Rate 2.0 2.0 10/12/17 10/12/17 10/13/17 10/13/17 21:26 23:00 03:00 05:37 Temp 101.9 96.9 101.9 96.9 Pulse 87 65 Resp 18 18 18 16 B/P (MAP) 125/72 (89) 117/67 (84) Pulse Ox 93 92 97 O2 Delivery Room Air Nasal Cannula Nasal Cannula Room Air O2 Flow Rate 2.0 2.0 2.0 10/13/17 10/13/17 10/13/17 10/13/17 06:40 07:00 10:25 10:46 Temp 96.0 96.0 Pulse 66 Resp 16 18 B/P (MAP) 115/71 (86) Pulse Ox 88 O2 Delivery Room Air Room Air Room Air Room Air Intake and Output 10/12/17 10/12/17 10/13/17 15:00 23:00 07:00 Intake Total 1650 ml 16059 ml Output Total 56 ml 500 ml 80 ml Balance -56 ml 1150 ml 80472 ml FIFI NICHOLS III DO Oct 13, 2017 12:09
--- NOTE | 2017-10-13 12:09 | PDOC ---
Infectious Disease Note Subjective: Subjective Pt continues to have fevers though none this am had drainage done yesterday still has pain no n/v/d/abdo pain ROS: ROS Negative except for above. Vital Signs: Vital Signs Vital Signs Date Time Temp Pulse Resp B/P (MAP) Pulse Ox O2 Delivery O2 Flow Rate FiO2 10/13/17 11:46 Nasal Cannula 2.0 10/13/17 07:00 96.0 66 18 115/71 (86) 88 96.0 Physical Exam: PHYSICAL EXAM GENERAL: Well-developed, well-nourished male, in no acute distress, appears comfortable, lying comfortably in bed. HEENT: Normocephalic, atraumatic, anicteric. No thrush. NECK: Supple. No JVD. LUNGS: Clear bilaterally. No wheezing. HEART: S1, S2 present. No gallops or murmurs. CHEST WALL: Right anterior lower chest wall, upper abdominal wall shows mild swelling, tenderness, erythema over the swelling,drainage tube in place draining purulent material no open skin wounds noted, tender. ABDOMEN: Soft, nontender, nondistended. No rebound, no guarding. Bowel sounds present. EXTREMITIES: No edema, no cyanosis, no clubbing. DERMATOLOGIC: No generalized rash. Warm, dry. NEUROLOGIC: Alert and oriented x 3. Grossly nonfocal. PSYCHIATRIC: Appropriate mood and affect. Medications: Inpatient Meds: Current Medications Medications (Trade) Dose Ordered Sig/Migel Start Time Stop Time Status Last Admin Dose Admin Acetaminophen (Tylenol) 650 mg PRN Q6HRS PRN 10/13/17 00:15 10/13/17 00:11 650 MG Acetaminophen/ Hydrocodone Bitart (Lortab 5/325) 2 tab PRN Q4HRS PRN 10/13/17 10:30 Clindamycin Phosphate 50 ml @ 100 mls/hr 1X ONCE 10/11/17 17:15 10/11/17 17:44 DC 10/11/17 20:13 100 MLS/HR Enoxaparin Sodium (Lovenox 40mg Syringe) 40 mg Q24H 10/11/17 20:30 Fentanyl Citrate (Fentanyl 2ml Vial) 100 mcg 1X ONCE 10/12/17 13:15 10/12/17 13:20 DC Info (CONTRAST GIVEN -- Rx MONITORING) 1 each PRN DAILY PRN 10/11/17 16:15 8/30/18 16:14 Iohexol (Omnipaque 300 Mg/ml) 75 ml 1X ONCE 10/11/17 16:15 10/11/17 16:16 DC 10/11/17 16:27 75 ML Ketorolac Tromethamine (Toradol 30mg Vial) 30 mg PRN Q6HRS PRN 10/11/17 21:30 10/16/17 21:29 10/13/17 06:37 30 MG Levofloxacin/ Dextrose 150 ml @ 100 mls/hr Q24H 10/12/17 05:00 10/13/17 05:37 100 MLS/HR Lidocaine/Sodium Bicarbonate (Buffered Lidocaine 1%) 5 ml 1X ONCE 10/12/17 13:15 10/12/17 13:20 DC Midazolam HCl (Versed) 1 mg 1X ONCE 10/12/17 13:15 10/12/17 13:20 DC Morphine Sulfate (Morphine Sulfate) 2 mg 1X ONCE 10/11/17 16:00 10/11/17 16:06 DC 10/11/17 16:34 2 MG Ondansetron HCl (Zofran) 4 mg PRN Q8HRS PRN 10/11/17 17:15 10/12/17 17:14 DC 10/12/17 08:49 4 MG Sodium Chloride 1,000 ml @ 125 mls/hr Q8H 10/12/17 05:15 10/13/17 05:36 125 MLS/HR Tramadol HCl (Ultram) 50 mg PRN Q4HRS PRN 10/11/17 21:30 10/13/17 10:25 50 MG Vancomycin HCl (Vanco Per Pharmacy) 1 each PRN DAILY PRN 10/11/17 17:30 10/12/17 18:11 1 EACH Vancomycin HCl (Vancomycin Trough Level) 1 each 1X ONCE 10/13/17 17:30 10/13/17 17:31 Vancomycin HCl 1.25 gm/Sodium Chloride 250 ml @ 167 mls/hr Q8H 10/12/17 18:00 10/13/17 01:47 167 MLS/HR Vancomycin HCl 1 gm/Sodium Chloride 250 ml @ 250 mls/hr Q8H 10/12/17 02:00 10/12/17 17:55 DC 10/12/17 08:51 250 MLS/HR Vancomycin HCl 2 gm/Sodium Chloride 500 ml @ 250 mls/hr 1X ONCE 10/11/17 17:45 10/11/17 19:44 DC 10/11/17 18:02 250 MLS/HR Labs: Lab Laboratory Tests Test 10/12/17 17:25 10/13/17 08:59 Vancomycin Level Trough 7.5 mcg/mL (10.0-20.0) Vancomycin Last Dose Date Unknown Vancomycin Last Dose Time Unknown White Blood Count 12.1 x10^3/uL (4.0-11.0) Red Blood Count 3.78 x10^6/uL (4.30-5.70) Hemoglobin 12.2 g/dL (13.0-17.5) Hematocrit 35.3 % (39.0-53.0) Mean Corpuscular Volume 94 fL (79-100) Mean Corpuscular Hemoglobin 32 pg (25-35) Mean Corpuscular Hemoglobin Concent 35 g/dL (31-37) Red Cell Distribution Width 12.9 % (11.5-14.5) Platelet Count 238 x10^3/uL (140-400) Neutrophils (%) (Auto) 79 % (31-73) Lymphocytes (%) (Auto) 12 % (24-48) Monocytes (%) (Auto) 8 % (0-9) Eosinophils (%) (Auto) 1 % (0-3) Basophils (%) (Auto) 1 % (0-3) Neutrophils # (Auto) 9.5 x10^3uL (1.8-7.7) Lymphocytes # (Auto) 1.4 x10^3/uL (1.0-4.8) Monocytes # (Auto) 1.0 x10^3/uL (0.0-1.1) Eosinophils # (Auto) 0.1 x10^3/uL (0.0-0.7) Basophils # (Auto) 0.1 x10^3/uL (0.0-0.2) Sodium Level 137 mmol/L (136-145) Potassium Level 3.7 mmol/L (3.5-5.1) Chloride Level 103 mmol/L (98-107) Carbon Dioxide Level 29 mmol/L (21-32) Anion Gap 5 (6-14) Blood Urea Nitrogen 13 mg/dL (8-26) Creatinine 0.9 mg/dL (0.7-1.3) Estimated GFR (Cockcroft-Gault) 96.0 Glucose Level 124 mg/dL (70-99) Calcium Level 8.0 mg/dL (8.5-10.1) Objective: Assessment: 1. Complex fluid collection anterior chest wall from injury,abscess s/p IR drainage, purulent material, c/s pending 2. Fever. from above,improving slowly 3. Leukocytosis.from above 4. History of appendectomy. 5. Intra-abdominal adenopathy. 6. Multiple tattoos for a couple of years. 7. HISTORY OF ALLERGIES TO PENICILLIN, 8. H/O MRSA infection, last treatment with bactrim in Feb 2017 Plan: Plan of Care 1. Continue empiric vancomycin and Levaquin. we discussed about trial with b lactams merrem, pt wants to wait for now 2. Continue local care. 3. Follow up cultures and susceptibility results. 4. Continue supportive care. 5. Monitor renal functions closely. 6. General surgery is following. AMILCAR MIR MD Oct 13, 2017 12:09
[2017-10-13] MEDS: VANCOMYCIN PER PHARMACY MC PRN ×2 (14:47→21:14)
[2017-10-13 15:00] VITALS: BP 129/75
[2017-10-13 19:00] VITALS: BP 121/66
[2017-10-13] MEDS: ENOXAPARIN 40 MG/0.4 ML SYRINGE. SQ SCH (20:30)
[2017-10-13 20:53] LABS: VANC TR 17.4 mcg/mL (10.0-20.0)
[2017-10-13] MEDS: LACTOBACILLUS RHAMNOSUS GG 1 CAPSULE. PO SCH (21:17)
[2017-10-13 23:00] VITALS: BP 127/80
[2017-10-14] MEDS: HYDROcodone/APAP 5/325MG 1 TAB TABLET PO PRN ×4 (01:23→12:51)
[2017-10-14] MEDS: KETOROLAC 30 MG/ML VIAL. IV PRN ×2 (01:28→07:40)
[2017-10-14 03:00] VITALS: BP 120/68
[2017-10-14] MEDS: IV NORMAL SALINE 1000ML BAG 1,000 ML IV SCH (05:15)
[2017-10-14] MEDS: traMADol 50 MG TABLET PO PRN (05:20)
[2017-10-14] MEDS: VANCOMYCIN 1.25 GM in IV NORMAL SALINE 250ML 250 ML IV SCH (05:21)
[2017-10-14 05:28] LABS: BASO # 0.1 x10^3/uL (0.0-0.2); BASO % 1 % (0-3); EOS # 0.1 x10^3/uL (0.0-0.7); EOS % 1 % (0-3); HEMOGLOBIN 12.7 g/dL (13.0-17.5); LYMPH # 1.8 x10^3/uL (1.0-4.8); LYMPH % 17 % (24-48); MEAN CORPUSCULAR HEMOGLOBIN 33 pg (25-35); MEAN CORPUSCULAR HGB CONC 34 g/dL (31-37); MEAN CORPUSCULAR VOLUME 95 fL (79-100); MONO # 0.6 x10^3/uL (0.0-1.1); MONO % 6 % (0-9); NEUT % 76 % (31-73); PLATELET COUNT 267 x10^3/uL (140-400); WHITE BLOOD COUNT 10.5 x10^3/uL (4.0-11.0)
[2017-10-14 07:00] VITALS: BP 134/86
[2017-10-14] MEDS: LACTOBACILLUS RHAMNOSUS GG 1 CAPSULE. PO SCH (07:39)
--- NOTE | 2017-10-14 09:18 | PDOC ---
Infectious Disease Note Subjective: Subjective pt doing slightly better still has pain no n/v/d/abdo pain ROS: ROS Negative except for above. Vital Signs: Vital Signs Vital Signs Date Time Temp Pulse Resp B/P (MAP) Pulse Ox O2 Delivery O2 Flow Rate FiO2 10/14/17 09:14 18 Room Air 10/14/17 07:00 97.9 78 134/86 (102) 94 2.0 97.9 Physical Exam: PHYSICAL EXAM GENERAL: Well-developed, well-nourished male, in no acute distress, appears comfortable, lying comfortably in bed. HEENT: Normocephalic, atraumatic, anicteric. No thrush. NECK: Supple. No JVD. LUNGS: Clear bilaterally. No wheezing. HEART: S1, S2 present. No gallops or murmurs. CHEST WALL: Right anterior lower chest wall, upper abdominal wall shows mild swelling, tenderness, erythema over the swelling,drainage tube in place draining purulent material no open skin wounds noted, tender.slightly improved ABDOMEN: Soft, nontender, nondistended. No rebound, no guarding. Bowel sounds present. EXTREMITIES: No edema, no cyanosis, no clubbing. DERMATOLOGIC: No generalized rash. Warm, dry. NEUROLOGIC: Alert and oriented x 3. Grossly nonfocal. PSYCHIATRIC: Appropriate mood and affect. Medications: Inpatient Meds: Current Medications Medications (Trade) Dose Ordered Sig/Migel Start Time Stop Time Status Last Admin Dose Admin Acetaminophen (Tylenol) 650 mg PRN Q6HRS PRN 10/13/17 00:15 10/13/17 00:11 650 MG Acetaminophen/ Hydrocodone Bitart (Lortab 5/325) 2 tab PRN Q4HRS PRN 10/13/17 10:30 10/14/17 09:14 2 TAB Clindamycin Phosphate 50 ml @ 100 mls/hr 1X ONCE 10/11/17 17:15 10/11/17 17:44 DC 10/11/17 20:13 100 MLS/HR Enoxaparin Sodium (Lovenox 40mg Syringe) 40 mg Q24H 10/11/17 20:30 Fentanyl Citrate (Fentanyl 2ml Vial) 100 mcg 1X ONCE 10/12/17 13:15 10/12/17 13:20 DC Info (CONTRAST GIVEN -- Rx MONITORING) 1 each PRN DAILY PRN 10/11/17 16:15 8/30/18 16:14 DC Iohexol (Omnipaque 300 Mg/ml) 75 ml 1X ONCE 10/11/17 16:15 10/11/17 16:16 DC 10/11/17 16:27 75 ML Ketorolac Tromethamine (Toradol 30mg Vial) 30 mg PRN Q6HRS PRN 10/11/17 21:30 10/16/17 21:29 10/14/17 07:40 30 MG Lactobacillus Rhamnosus (Culturelle) 1 cap BID 10/13/17 21:00 10/14/17 07:39 1 CAP Levofloxacin/ Dextrose 150 ml @ 100 mls/hr Q24H 10/12/17 05:00 10/14/17 07:39 100 MLS/HR Lidocaine/Sodium Bicarbonate (Buffered Lidocaine 1%) 5 ml 1X ONCE 10/12/17 13:15 10/12/17 13:20 DC Midazolam HCl (Versed) 1 mg 1X ONCE 10/12/17 13:15 10/12/17 13:20 DC Morphine Sulfate (Morphine Sulfate) 2 mg 1X ONCE 10/11/17 16:00 10/11/17 16:06 DC 10/11/17 16:34 2 MG Ondansetron HCl (Zofran) 4 mg PRN Q8HRS PRN 10/11/17 17:15 10/12/17 17:14 DC 10/12/17 08:49 4 MG Sodium Chloride 1,000 ml @ 125 mls/hr Q8H 10/12/17 05:15 10/14/17 05:15 125 MLS/HR Tramadol HCl (Ultram) 50 mg PRN Q4HRS PRN 10/11/17 21:30 10/14/17 05:20 50 MG Vancomycin HCl (Vanco Per Pharmacy) 1 each PRN DAILY PRN 10/11/17 17:30 10/13/17 21:14 1 EACH Vancomycin HCl (Vancomycin Trough Level) 1 each 1X ONCE 10/13/17 20:30 10/13/17 20:31 DC 10/13/17 20:30 1 EACH Vancomycin HCl 1.25 gm/Sodium Chloride 250 ml @ 167 mls/hr Q8H 10/12/17 18:00 10/14/17 05:21 167 MLS/HR Vancomycin HCl 1 gm/Sodium Chloride 250 ml @ 250 mls/hr Q8H 10/12/17 02:00 10/12/17 17:55 DC 10/12/17 08:51 250 MLS/HR Vancomycin HCl 2 gm/Sodium Chloride 500 ml @ 250 mls/hr 1X ONCE 10/11/17 17:45 10/11/17 19:44 DC 10/11/17 18:02 250 MLS/HR Labs: Lab Laboratory Tests Test 10/13/17 20:20 10/14/17 04:00 Vancomycin Level Trough 17.4 mcg/mL (10.0-20.0) Vancomycin Last Dose Date 10/13/17 Vancomycin Last Dose Time 1319 White Blood Count 10.5 x10^3/uL (4.0-11.0) Red Blood Count 3.90 x10^6/uL (4.30-5.70) Hemoglobin 12.7 g/dL (13.0-17.5) Hematocrit 37.0 % (39.0-53.0) Mean Corpuscular Volume 95 fL (79-100) Mean Corpuscular Hemoglobin 33 pg (25-35) Mean Corpuscular Hemoglobin Concent 34 g/dL (31-37) Red Cell Distribution Width 13.0 % (11.5-14.5) Platelet Count 267 x10^3/uL (140-400) Neutrophils (%) (Auto) 76 % (31-73) Lymphocytes (%) (Auto) 17 % (24-48) Monocytes (%) (Auto) 6 % (0-9) Eosinophils (%) (Auto) 1 % (0-3) Basophils (%) (Auto) 1 % (0-3) Neutrophils # (Auto) 8.0 x10^3uL (1.8-7.7) Lymphocytes # (Auto) 1.8 x10^3/uL (1.0-4.8) Monocytes # (Auto) 0.6 x10^3/uL (0.0-1.1) Eosinophils # (Auto) 0.1 x10^3/uL (0.0-0.7) Basophils # (Auto) 0.1 x10^3/uL (0.0-0.2) Sodium Level 137 mmol/L (136-145) Potassium Level 4.0 mmol/L (3.5-5.1) Chloride Level 102 mmol/L (98-107) Carbon Dioxide Level 28 mmol/L (21-32) Anion Gap 7 (6-14) Blood Urea Nitrogen 16 mg/dL (8-26) Creatinine 1.0 mg/dL (0.7-1.3) Estimated GFR (Cockcroft-Gault) 85.0 Glucose Level 50 mg/dL (70-99) Calcium Level 8.0 mg/dL (8.5-10.1) Micro BC NGTD RUN DATE: 10/13/17 PAGE 1 RUN TIME: 129 [facility] [address] [place] [address] Wilman Zamora M.D., [employer] Supervisor PATIENT: MARIAH FERNANDEZ ACCT: [id number] LOC: [address] [place] [address] U : [id number] AGE/SX: 36/M ROOM: 442 REG : 10/11/[address]: CARLA PAREDES MD : 1980 BED: 1 DIS : STATUS: ADM IN TLOC: SPEC #: [id number] JAIDEN: 10/12/17 STATUS: RES REQ #: [id number] RECD: 10/12/17-[address]: NIKI BLOOM MD SOURCE: ABD FLUID ENTR: 10/12/17-[address]: AMILCAR MIR MD SPDESC: CARLA PAREDES MD, STEPHEN J MD NO PCP ORDERED: ANAER/AEROB/GS Procedure Result ANAEROBIC-AEROBIC CULTURE PENDING ANAEROBIC RES 1 PENDING AEROBIC CULT PENDING AEROBIC RES 1 PENDING GRAM STAIN Final Final report GRAM STAIN RES 1 Final Comment Moderate amount of white blood cells. GRAM STAIN RES 2 Final Comment Gram positive cocci in clusters Many seen Performed at: DA - [facility] [address], [place], [place] [id number] Cryptographer: DANK Wilson MD, Phone: [phone] Objective: Assessment: 1. Complex fluid collection anterior chest wall from injury,abscess s/p IR drainage, purulent material, c/s GPC ID and LUCIA pending 2. Fever.resolved 3. Leukocytosis.resolved 4. History of appendectomy. 5. Intra-abdominal adenopathy. 6. Multiple tattoos for a couple of years. 7. HISTORY OF ALLERGIES TO PENICILLIN, 8. H/O MRSA infection, last treatment with bactrim in Feb 2017 Plan: Plan of Care 1. Continue empiric vancomycin DC Levaquin. 2. Continue local care. 3. Follow up cultures and susceptibility results. 4. Continue supportive care. 5. Monitor renal functions closely. 6. General surgery is following. MAILCAR MIR MD Oct 14, 2017 09:18
--- NOTE | 2017-10-14 10:10 | PDOC ---
SURGICAL PROGRESS NOTE Subjective pain is about the same no emesis Vital Signs Vital Signs Date Time Temp Pulse Resp B/P (MAP) Pulse Ox O2 Delivery O2 Flow Rate FiO2 10/14/17 09:14 18 Room Air 10/14/17 07:00 97.9 78 134/86 (102) 94 2.0 97.9 I&O Intake and Output 10/14/17 07:00 Intake Total 370 ml Output Total 1200 ml Balance -830 ml Intake Oral 370 ml Output Urine Total 1200 ml # Voids 2 General: Alert, Oriented X3, Cooperative, No acute distress Abdomen: Soft, Other (RUQ TTP, drain purulent ) Labs Laboratory Tests Test 10/12/17 17:25 10/13/17 08:59 10/13/17 20:20 10/14/17 04:00 Vancomycin Level Trough 7.5 mcg/mL (10.0-20.0) 17.4 mcg/mL (10.0-20.0) Vancomycin Last Dose Date Unknown 10/13/17 Vancomycin Last Dose Time Unknown 1319 White Blood Count 12.1 x10^3/uL (4.0-11.0) 10.5 x10^3/uL (4.0-11.0) Red Blood Count 3.78 x10^6/uL (4.30-5.70) 3.90 x10^6/uL (4.30-5.70) Hemoglobin 12.2 g/dL (13.0-17.5) 12.7 g/dL (13.0-17.5) Hematocrit 35.3 % (39.0-53.0) 37.0 % (39.0-53.0) Mean Corpuscular Volume 94 fL (79-100) 95 fL (79-100) Mean Corpuscular Hemoglobin 32 pg (25-35) 33 pg (25-35) Mean Corpuscular Hemoglobin Concent 35 g/dL (31-37) 34 g/dL (31-37) Red Cell Distribution Width 12.9 % (11.5-14.5) 13.0 % (11.5-14.5) Platelet Count 238 x10^3/uL (140-400) 267 x10^3/uL (140-400) Neutrophils (%) (Auto) 79 % (31-73) 76 % (31-73) Lymphocytes (%) (Auto) 12 % (24-48) 17 % (24-48) Monocytes (%) (Auto) 8 % (0-9) 6 % (0-9) Eosinophils (%) (Auto) 1 % (0-3) 1 % (0-3) Basophils (%) (Auto) 1 % (0-3) 1 % (0-3) Neutrophils # (Auto) 9.5 x10^3uL (1.8-7.7) 8.0 x10^3uL (1.8-7.7) Lymphocytes # (Auto) 1.4 x10^3/uL (1.0-4.8) 1.8 x10^3/uL (1.0-4.8) Monocytes # (Auto) 1.0 x10^3/uL (0.0-1.1) 0.6 x10^3/uL (0.0-1.1) Eosinophils # (Auto) 0.1 x10^3/uL (0.0-0.7) 0.1 x10^3/uL (0.0-0.7) Basophils # (Auto) 0.1 x10^3/uL (0.0-0.2) 0.1 x10^3/uL (0.0-0.2) Sodium Level 137 mmol/L (136-145) 137 mmol/L (136-145) Potassium Level 3.7 mmol/L (3.5-5.1) 4.0 mmol/L (3.5-5.1) Chloride Level 103 mmol/L (98-107) 102 mmol/L (98-107) Carbon Dioxide Level 29 mmol/L (21-32) 28 mmol/L (21-32) Anion Gap 5 (6-14) 7 (6-14) Blood Urea Nitrogen 13 mg/dL (8-26) 16 mg/dL (8-26) Creatinine 0.9 mg/dL (0.7-1.3) 1.0 mg/dL (0.7-1.3) Estimated GFR (Cockcroft-Gault) 96.0 85.0 Glucose Level 124 mg/dL (70-99) 50 mg/dL (70-99) Calcium Level 8.0 mg/dL (8.5-10.1) 8.0 mg/dL (8.5-10.1) Laboratory Tests Test 10/13/17 20:20 10/14/17 04:00 Vancomycin Level Trough 17.4 mcg/mL (10.0-20.0) Vancomycin Last Dose Date 10/13/17 Vancomycin Last Dose Time 1319 White Blood Count 10.5 x10^3/uL (4.0-11.0) Red Blood Count 3.90 x10^6/uL (4.30-5.70) Hemoglobin 12.7 g/dL (13.0-17.5) Hematocrit 37.0 % (39.0-53.0) Mean Corpuscular Volume 95 fL (79-100) Mean Corpuscular Hemoglobin 33 pg (25-35) Mean Corpuscular Hemoglobin Concent 34 g/dL (31-37) Red Cell Distribution Width 13.0 % (11.5-14.5) Platelet Count 267 x10^3/uL (140-400) Neutrophils (%) (Auto) 76 % (31-73) Lymphocytes (%) (Auto) 17 % (24-48) Monocytes (%) (Auto) 6 % (0-9) Eosinophils (%) (Auto) 1 % (0-3) Basophils (%) (Auto) 1 % (0-3) Neutrophils # (Auto) 8.0 x10^3uL (1.8-7.7) Lymphocytes # (Auto) 1.8 x10^3/uL (1.0-4.8) Monocytes # (Auto) 0.6 x10^3/uL (0.0-1.1) Eosinophils # (Auto) 0.1 x10^3/uL (0.0-0.7) Basophils # (Auto) 0.1 x10^3/uL (0.0-0.2) Sodium Level 137 mmol/L (136-145) Potassium Level 4.0 mmol/L (3.5-5.1) Chloride Level 102 mmol/L (98-107) Carbon Dioxide Level 28 mmol/L (21-32) Anion Gap 7 (6-14) Blood Urea Nitrogen 16 mg/dL (8-26) Creatinine 1.0 mg/dL (0.7-1.3) Estimated GFR (Cockcroft-Gault) 85.0 Glucose Level 50 mg/dL (70-99) Calcium Level 8.0 mg/dL (8.5-10.1) Problem List Problems Medical Problems: (1) Chest wall abscess Status: Acute Assessment/Plan continue drain wbc improved 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
--- NOTE | 2017-10-14 12:15 | PDOC ---
PROGRESS NOTES Chief Complaint Chief Complaint Chest wall abscess Small right pleural effusion with mild right basilar atelectasis. Mild hepatomegaly and moderate splenomegaly, Mild portacaval and celiac region adenopathy. Leukocytosis History of Present Illness History of Present Illness Pt seen and examined Dw nurse VSS Pt's pain has improved Vitals Vitals Vital Signs Date Time Temp Pulse Resp B/P (MAP) Pulse Ox O2 Delivery O2 Flow Rate FiO2 10/14/17 10:14 16 Room Air 10/14/17 07:00 97.9 78 134/86 (102) 94 2.0 97.9 Physical Exam General: Alert, Oriented X3, Cooperative, No acute distress Heart: Regular rate, Normal S1, Normal S2, No murmurs Lungs: Clear Abdomen: Soft, Other (RUQ TTP, drain purulent ) Extremities: No clubbing, No cyanosis, No edema Skin: No rashes, No breakdown Labs LABS Laboratory Tests Test 10/13/17 20:20 10/14/17 04:00 Vancomycin Level Trough 17.4 mcg/mL (10.0-20.0) Vancomycin Last Dose Date 10/13/17 Vancomycin Last Dose Time 1319 White Blood Count 10.5 x10^3/uL (4.0-11.0) Red Blood Count 3.90 x10^6/uL (4.30-5.70) Hemoglobin 12.7 g/dL (13.0-17.5) Hematocrit 37.0 % (39.0-53.0) Mean Corpuscular Volume 95 fL (79-100) Mean Corpuscular Hemoglobin 33 pg (25-35) Mean Corpuscular Hemoglobin Concent 34 g/dL (31-37) Red Cell Distribution Width 13.0 % (11.5-14.5) Platelet Count 267 x10^3/uL (140-400) Neutrophils (%) (Auto) 76 % (31-73) Lymphocytes (%) (Auto) 17 % (24-48) Monocytes (%) (Auto) 6 % (0-9) Eosinophils (%) (Auto) 1 % (0-3) Basophils (%) (Auto) 1 % (0-3) Neutrophils # (Auto) 8.0 x10^3uL (1.8-7.7) Lymphocytes # (Auto) 1.8 x10^3/uL (1.0-4.8) Monocytes # (Auto) 0.6 x10^3/uL (0.0-1.1) Eosinophils # (Auto) 0.1 x10^3/uL (0.0-0.7) Basophils # (Auto) 0.1 x10^3/uL (0.0-0.2) Sodium Level 137 mmol/L (136-145) Potassium Level 4.0 mmol/L (3.5-5.1) Chloride Level 102 mmol/L (98-107) Carbon Dioxide Level 28 mmol/L (21-32) Anion Gap 7 (6-14) Blood Urea Nitrogen 16 mg/dL (8-26) Creatinine 1.0 mg/dL (0.7-1.3) Estimated GFR (Cockcroft-Gault) 85.0 Glucose Level 50 mg/dL (70-99) Calcium Level 8.0 mg/dL (8.5-10.1) Review of Systems Review of Systems Denies pain CO fatigue Assessment and Plan Assessmemt and Plan Problems Medical Problems: (1) Chest wall abscess Status: Acute Chest wall abscess Small right pleural effusion with mild right basilar atelectasis. Mild hepatomegaly and moderate splenomegaly, Mild portacaval and celiac region adenopathy. Leukocytosis Plan: Switch to PO Abx Wound care Monitor drain D/C if ok with surgery Comment Review of Relevant I have reviewed the following items janna (where applicable) has been applied. Labs Laboratory Tests Test 10/12/17 17:25 10/13/17 08:59 10/13/17 20:20 10/14/17 04:00 Vancomycin Level Trough 7.5 mcg/mL (10.0-20.0) 17.4 mcg/mL (10.0-20.0) Vancomycin Last Dose Date Unknown 10/13/17 Vancomycin Last Dose Time Unknown 1319 White Blood Count 12.1 x10^3/uL (4.0-11.0) 10.5 x10^3/uL (4.0-11.0) Red Blood Count 3.78 x10^6/uL (4.30-5.70) 3.90 x10^6/uL (4.30-5.70) Hemoglobin 12.2 g/dL (13.0-17.5) 12.7 g/dL (13.0-17.5) Hematocrit 35.3 % (39.0-53.0) 37.0 % (39.0-53.0) Mean Corpuscular Volume 94 fL (79-100) 95 fL (79-100) Mean Corpuscular Hemoglobin 32 pg (25-35) 33 pg (25-35) Mean Corpuscular Hemoglobin Concent 35 g/dL (31-37) 34 g/dL (31-37) Red Cell Distribution Width 12.9 % (11.5-14.5) 13.0 % (11.5-14.5) Platelet Count 238 x10^3/uL (140-400) 267 x10^3/uL (140-400) Neutrophils (%) (Auto) 79 % (31-73) 76 % (31-73) Lymphocytes (%) (Auto) 12 % (24-48) 17 % (24-48) Monocytes (%) (Auto) 8 % (0-9) 6 % (0-9) Eosinophils (%) (Auto) 1 % (0-3) 1 % (0-3) Basophils (%) (Auto) 1 % (0-3) 1 % (0-3) Neutrophils # (Auto) 9.5 x10^3uL (1.8-7.7) 8.0 x10^3uL (1.8-7.7) Lymphocytes # (Auto) 1.4 x10^3/uL (1.0-4.8) 1.8 x10^3/uL (1.0-4.8) Monocytes # (Auto) 1.0 x10^3/uL (0.0-1.1) 0.6 x10^3/uL (0.0-1.1) Eosinophils # (Auto) 0.1 x10^3/uL (0.0-0.7) 0.1 x10^3/uL (0.0-0.7) Basophils # (Auto) 0.1 x10^3/uL (0.0-0.2) 0.1 x10^3/uL (0.0-0.2) Sodium Level 137 mmol/L (136-145) 137 mmol/L (136-145) Potassium Level 3.7 mmol/L (3.5-5.1) 4.0 mmol/L (3.5-5.1) Chloride Level 103 mmol/L (98-107) 102 mmol/L (98-107) Carbon Dioxide Level 29 mmol/L (21-32) 28 mmol/L (21-32) Anion Gap 5 (6-14) 7 (6-14) Blood Urea Nitrogen 13 mg/dL (8-26) 16 mg/dL (8-26) Creatinine 0.9 mg/dL (0.7-1.3) 1.0 mg/dL (0.7-1.3) Estimated GFR (Cockcroft-Gault) 96.0 85.0 Glucose Level 124 mg/dL (70-99) 50 mg/dL (70-99) Calcium Level 8.0 mg/dL (8.5-10.1) 8.0 mg/dL (8.5-10.1) Laboratory Tests Test 10/13/17 20:20 10/14/17 04:00 Vancomycin Level Trough 17.4 mcg/mL (10.0-20.0) Vancomycin Last Dose Date 10/13/17 Vancomycin Last Dose Time 1319 White Blood Count 10.5 x10^3/uL (4.0-11.0) Red Blood Count 3.90 x10^6/uL (4.30-5.70) Hemoglobin 12.7 g/dL (13.0-17.5) Hematocrit 37.0 % (39.0-53.0) Mean Corpuscular Volume 95 fL (79-100) Mean Corpuscular Hemoglobin 33 pg (25-35) Mean Corpuscular Hemoglobin Concent 34 g/dL (31-37) Red Cell Distribution Width 13.0 % (11.5-14.5) Platelet Count 267 x10^3/uL (140-400) Neutrophils (%) (Auto) 76 % (31-73) Lymphocytes (%) (Auto) 17 % (24-48) Monocytes (%) (Auto) 6 % (0-9) Eosinophils (%) (Auto) 1 % (0-3) Basophils (%) (Auto) 1 % (0-3) Neutrophils # (Auto) 8.0 x10^3uL (1.8-7.7) Lymphocytes # (Auto) 1.8 x10^3/uL (1.0-4.8) Monocytes # (Auto) 0.6 x10^3/uL (0.0-1.1) Eosinophils # (Auto) 0.1 x10^3/uL (0.0-0.7) Basophils # (Auto) 0.1 x10^3/uL (0.0-0.2) Sodium Level 137 mmol/L (136-145) Potassium Level 4.0 mmol/L (3.5-5.1) Chloride Level 102 mmol/L (98-107) Carbon Dioxide Level 28 mmol/L (21-32) Anion Gap 7 (6-14) Blood Urea Nitrogen 16 mg/dL (8-26) Creatinine 1.0 mg/dL (0.7-1.3) Estimated GFR (Cockcroft-Gault) 85.0 Glucose Level 50 mg/dL (70-99) Calcium Level 8.0 mg/dL (8.5-10.1) Microbiology 10/11/17 Blood Culture - Preliminary, Resulted NO GROWTH AFTER 2 DAYS 10/12/17 Anaerobic/Aerobic Culture, Resulted Pending 10/12/17 Anaerobic Culture Result 1 (LUCIA), Resulted Pending 10/12/17 Aerobic Culture, Resulted Pending 10/12/17 Aerobic Culture Result 1 (LUCIA), Resulted Pending 10/12/17 Gram Stain - Final, Resulted 10/12/17 Gram Stain Result 1 (LUCIA) - Final, Resulted 10/12/17 Gram Stain Result 2 (LUCIA) - Final, Resulted Medications Current Medications Morphine Sulfate (Morphine Sulfate) 2 mg 1X ONCE IV Last administered on at 16:34; Start 10/11/17 at 16:00; Stop 10/11/17 at 16:06; Status DC Ondansetron HCl (Zofran) 4 mg 1X ONCE IV Last administered on 10/11/17at 16:33 ; Start 10/11/17 at 16:00; Stop 10/11/17 at 16:06; Status DC Iohexol (Omnipaque 300 Mg/ml) 75 ml 1X ONCE IV Last administered on 10/11/17at 16:27; Start 10/11/17 at 16:15; Stop 10/11/17 at 16:16; Status DC Info (CONTRAST GIVEN -- Rx MONITORING) 1 each PRN DAILY PRN MC SEE COMMENTS; Start 10/11/17 at 16:15; Stop 10/13/17 at 16:14; Status DC Clindamycin Phosphate 50 ml @ 100 mls/hr 1X ONCE IV Last administered on 10/11at 20:13; Start 10/11/17 at 17:15; Stop 10/11/17 at 17:44; Status DC Ondansetron HCl (Zofran) 4 mg PRN Q8HRS PRN IV NAUSEA/VOMITING 1ST CHOICE Last administered on 10/12/17at 08:49; Start 10/11/17 at 17:15; Stop 10/12/17 at 17:14 ; Status DC Fentanyl Citrate (Fentanyl 2ml Vial) 50 mcg PRN Q1HR PRN IV PAIN Last administered on 10/12/17at 15:39; Start 10/11/17 at 17:15; Stop 10/12/17 at 17:14 ; Status DC Acetaminophen (Tylenol) 650 mg PRN Q4HRS PRN PO FEVER Last administered on 10/12at 15:03; Start 10/11/17 at 17:15; Stop 10/12/17 at 17:14; Status DC Vancomycin HCl (Vanco Per Pharmacy) 1 each PRN DAILY PRN MC SEE COMMENTS Last administered on 10/13/17at 21:14; Start 10/11/17 at 17:30 Vancomycin HCl 2 gm/Sodium Chloride 500 ml @ 250 mls/hr 1X ONCE IV Last administered on 10/11/17at 18:02; Start 10/11/17 at 17:45; Stop 10/11/17 at 19:44 ; Status DC Vancomycin HCl 1 gm/Sodium Chloride 250 ml @ 250 mls/hr Q8H IV Last administered on 10/12/17at 08:51; Start 10/12/17 at 02:00; Stop 10/12/17 at 17:55 ; Status DC Vancomycin HCl (Vancomycin Trough Level) 1 each 1X ONCE MC Last administered on 10/12/17at 17:30; Start 10/12/17 at 17:30; Stop 10/12/17 at 17:31; Status DC Enoxaparin Sodium (Lovenox 40mg Syringe) 40 mg Q24H SQ ; Start 10/11/17 at 20:30 Ketorolac Tromethamine (Toradol 30mg Vial) 30 mg PRN Q6HRS PRN IV MODERATE PAIN Last administered on 10/14/17at 07:40; Start 10/11/17 at 21:30; Stop at 21:29 Tramadol HCl (Ultram) 50 mg PRN Q4HRS PRN PO MILD PAIN Last administered on at 05:20; Start 10/11/17 at 21:30 Levofloxacin/ Dextrose 150 ml @ 100 mls/hr Q24H IV Last administered on at 07:39; Start 10/12/17 at 05:00 Sodium Chloride 1,000 ml @ 1,000 mls/hr 1X ONCE IV Last administered on at 04:22; Start 10/12/17 at 04:15; Stop 10/12/17 at 05:14; Status DC Sodium Chloride 1,000 ml @ 125 mls/hr Q8H IV Last administered on 10/14/17at 05 :15; Start 10/12/17 at 05:15 Lidocaine/Sodium Bicarbonate (Buffered Lidocaine 1%) 3 ml STK-MED ONCE .ROUTE ; Start 10/12/17 at 12:17; Stop 10/12/17 at 12:18; Status DC Midazolam HCl (Versed) 2 mg STK-MED ONCE .ROUTE ; Start 10/12/17 at 12:47; Stop 10/12/17 at 12:48; Status DC Fentanyl Citrate (Fentanyl 2ml Vial) 100 mcg STK-MED ONCE .ROUTE ; Start at 12:47; Stop 10/12/17 at 12:48; Status DC Lidocaine/Sodium Bicarbonate (Buffered Lidocaine 1%) 5 ml 1X ONCE IJ Last administered on 10/12/17at 13:15; Start 10/12/17 at 13:15; Stop 10/12/17 at 13:20 ; Status DC Midazolam HCl (Versed) 1 mg 1X ONCE IV Last administered on 10/12/17at 13:14; Start 10/12/17 at 13:15; Stop 10/12/17 at 13:20; Status DC Fentanyl Citrate (Fentanyl 2ml Vial) 100 mcg 1X ONCE IV Last administered on at 13:14; Start 10/12/17 at 13:15; Stop 10/12/17 at 13:20; Status DC Lidocaine/Sodium Bicarbonate (Buffered Lidocaine 1%) 5 ml 1X ONCE IJ ; Start at 13:15; Stop 10/12/17 at 13:20; Status DC Midazolam HCl (Versed) 1 mg 1X ONCE IV ; Start 10/12/17 at 13:15; Stop at 13:20; Status DC Fentanyl Citrate (Fentanyl 2ml Vial) 100 mcg 1X ONCE IV ; Start 10/12/17 at 13: 15; Stop 10/12/17 at 13:20; Status DC Vancomycin HCl 1.25 gm/Sodium Chloride 250 ml @ 167 mls/hr Q8H IV Last administered on 10/14/17at 05:21; Start 10/12/17 at 18:00 Vancomycin HCl (Vancomycin Trough Level) 1 each 1X ONCE MC Last administered on 10/13/17at 20:30; Start 10/13/17 at 20:30; Stop 10/13/17 at 20:31; Status DC Acetaminophen (Tylenol) 650 mg PRN Q6HRS PRN PO FEVER Last administered on 10/13at 00:11; Start 10/13/17 at 00:15 Acetaminophen/ Hydrocodone Bitart (Lortab 5/325) 1 tab PRN Q4HRS PRN PO MODERATE PAIN Last administered on 10/14/17at 05:20; Start 10/13/17 at 10:30 Acetaminophen/ Hydrocodone Bitart (Lortab 5/325) 2 tab PRN Q4HRS PRN PO SEVERE PAIN Last administered on 10/14/17at 09:14; Start 10/13/17 at 10:30 Lactobacillus Rhamnosus (Culturelle) 1 cap BID PO Last administered on at 07:39; Start 10/13/17 at 21:00 Vitals/I & O Vital Sign - Last 24 Hours 10/13/17 10/13/17 10/13/17 10/13/17 15:00 16:33 18:52 19:00 Temp 97.6 97.5 97.6 97.5 Pulse 67 72 Resp 18 18 B/P (MAP) 129/75 (93) 121/66 (84) Pulse Ox 96 95 O2 Delivery Nasal Cannula Room Air Nasal Cannula Nasal Cannula O2 Flow Rate 2.0 2.0 2.0 10/13/17 10/13/17 10/13/17 10/13/17 19:52 20:00 21:16 23:00 Temp 98.0 98.0 Pulse 76 Resp 18 18 B/P (MAP) 127/80 (96) Pulse Ox 95 95 94 O2 Delivery Nasal Cannula Nasal Cannula Nasal Cannula O2 Flow Rate 2.0 2.0 2.0 2.0 10/14/17 10/14/17 10/14/17 10/14/17 01:23 02:23 03:00 05:20 Temp 97.9 97.9 Pulse 72 Resp 18 18 B/P (MAP) 120/68 (85) Pulse Ox 94 94 94 94 O2 Delivery Nasal Cannula Nasal Cannula Nasal Cannula O2 Flow Rate 2.0 2.0 2.0 2.0 10/14/17 10/14/17 10/14/17 10/14/17 05:20 06:20 06:20 07:00 Temp 97.9 97.9 Pulse 78 Resp 18 16 16 16 B/P (MAP) 134/86 (102) Pulse Ox 94 94 O2 Delivery Nasal Cannula Nasal Cannula Nasal Cannula Nasal Cannula O2 Flow Rate 2.0 2.0 10/14/17 10/14/17 10/14/17 08:00 09:14 10:14 Resp 18 16 O2 Delivery Room Air Room Air Room Air Intake and Output 10/13/17 10/13/17 10/14/17 15:00 23:00 07:00 Intake Total 370 ml Output Total 1200 ml Balance 370 ml -1200 ml FIFI NICHOLS III DO Oct 14, 2017 12:15
--- NOTE | 2017-10-14 19:18 | DS ---
DATE OF DISCHARGE: 10/14/2017 ADMISSION DIAGNOSIS: Chest wall abscess. DISCHARGE DIAGNOSIS: Resolving chest wall abscess with incision and drainage and a drain placed. CONSULTS: We consulted Interventional Radiology. HOSPITAL COURSE: The patient is a pleasant middle-aged male who resides at [facility]. He is in the minimum custody unit. He basically presented with right chest wall abscess. He was admitted. We gave him IV antibiotics and consulted General Surgery. He went for chest wall abscess drainage with Interventional Radiology and they left a tube in place with a Alexander-Valera drain. Post-procedure, he did well. He had a low fever previous night, but today, he is doing great. His white count is normal, we plan to discharge. DISPOSITION: Back to the [facility]. ACTIVITY: As tolerated. DIET: Low sodium. MEDICATIONS: Please see the MRAD. TOTAL TIME: 32 minutes. FIFI NICHOLS DO DR: MARTHA/amandeep JOB#: [id number] / [id number]
== END 2017-10-14 13:34 | disposition home or self-care (01) | DRG 871 ==
LOC: EEVIPCON 14:43 → ER 14:43 → 4 NORTH 17:08
PROVIDERS: ADMIT Family Medicine; ATTEND Family Medicine
PROC: 0W9830Z Drainage of Chest Wall with Drainage Device, Percutaneous Approach (ICD-10-PCS; principal; 2017-10-12)
DX: A41.9 Sepsis, unspecified organism (principal); E43 Unspecified severe protein-calorie malnutrition; L02.213 Cutaneous abscess of chest wall; J98.11 Atelectasis; S20.211A Contusion of right front wall of thorax, initial encounter; X58.XXXA Exposure to other specified factors, initial encounter; Z82.49 Family history of ischemic heart disease and other diseases of the circulatory system; Z86.14 Personal history of Methicillin resistant Staphylococcus aureus infection; Z90.49 Acquired absence of other specified parts of digestive tract; Z88.0 Allergy status to penicillin; Y93.89 Activity, other specified; Y92.89 Other specified places as the place of occurrence of the external cause; Y99.8 Other external cause status; Z68.29 Body mass index [BMI] 29.0-29.9, adult
CPT/HCPCS: 36415; 49406; 71260; 80048; 80053; 80202; 83605; 85025; 85610; 87040; 87071; 87075; 87641; 96365; 96366; 96368; 96375; 99152; 99153; A4215; C1729; C1892; C1894; J1885; J1956; J2250; J2270; J2405; J3010; J3370; J3490; J7030; J7040; J7050; Q9967; 99285-25